=== PATIENT | female | born 1955 | race Caucasian/White ===

== ENCOUNTER 2020-07-23 14:37 | Outpatient (REF) | payer OTHER, SELFPAY ==
[2020-07-23 16:00] LABS: SARS COV2 PCR INHOUSE NEGATIVE (Negative)
== END 2020-07-23 14:38 | disposition home or self-care (01) ==
LOC: HO.LAB 14:37
PROVIDERS: Visit Provider Internal Medicine
DX: Z20.822 Contact with and (suspected) exposure to COVID-19 (principal)
CPT/HCPCS: C9803; U0003

== ENCOUNTER 2020-08-11 11:46 | Day surgery (SDC) | payer OTHER, SELFPAY ==
[2020-08-11 11:56] VITALS: BMI 21.0
[2020-08-11 12:10] VITALS: BP 117/73; PULSE 71; RESP 16; TEMP 36.6; O2SAT 98
[2020-08-11] MEDS: Lactated Ringers 1,000 ML 20 ML IVCONT (12:10)
--- NOTE | 2020-08-11 13:00 | P.CONAN_ITS ---
[facility] Past Medical History Medical History Elevated cholesterol Family History Family history of problems with anesthesia: No Surgical History Surgical History S/P epidural steroid injection History of Problems with Anesthesia: No Social History Social History Smoking Status: Former smoker Smoked in Last 30 Days: No Use of substances other than those prescribed or required for medical reasons: No Advance Directives: No Advance Directives Information Provided: Yes Meds Allergies Allergy/AdvReac Type Severity Reaction Status Date / Time tramadol Allergy Unknown Unknown Verified 08/04/20 14:40 Exam Exam Date and Time: August 11, 2020 1300 Height,Weight and Vital Signs: Height 5 ft 7 in Weight 61 kg Last Vital Signs Temp 97.9 F 08/11/20 12:10 Pulse 71 08/11/20 12:10 Resp 16 08/11/20 12:10 BP 117/73 08/11/20 12:10 Pulse Ox 98 08/11/20 12:10 Airway Mallampati Class: I TM Dist: >3cm Neck ROM: Full Loose/Missing/Broken Teeth: No Heart: ok Lungs: ok Assessment and Plan Assessment Anesthesia Assessment: Anesthesia Plan Discussed and Chart Reviewed Final Anesthetic Review NPO: Yes ASA Class: I Final Preanesthetic Review: No Changes in Pt Med Stat, Meds/Allgs Chart Reviewed, Consent Obtained/Reviewed and Anes Risks/Benef Reviewed Patient Risk: Low Procedure Risk: Intermediate Anesthetic Plan Anesthetic Plan: MAC: and Agree w/ Assess. and Plan Disposition: Standard PACU
--- NOTE | 2020-08-11 13:01 | MHC.SHP ---
Pre-Procedural Eval Section A The patient is an INPATIENT: No Changes since office visit: No Cold of Flu in the past 2 weeks, No New Medical Problems, No Changes in Medication and No Patient answered all questions The History & Physical has been completed within 30 days and I have reviewed it.: Yes Section B Chief Complaint: GERD, Diarrhea Allergies: Allergies Allergy/AdvReac Type Severity Reaction Status Date / Time tramadol Allergy Unknown Unknown Verified 08/04/20 14:40 Plan I have reviewed the history and physical and performed a pertinent physical examination on my patient. No changes have occurred unless specified.
[2020-08-11 13:56] VITALS: BP 102/61; PULSE 55; RESP 18; TEMP 36.6; O2SAT 97
--- NOTE | 2020-08-11 14:05 | PM.OP ---
Brief Operative Note Date of Service: 08/11/20 Pre-op diagnosis: epigastric pain, diarrhea Post-op diagnosis: same (gastric polyp, colon polyps) Procedure: egd/colon Surgeon: Mani Morales Anesthesia: MAC Estimated blood loss (mL): 5 Pathology: other (bxs, colonpolyps, gastric polyp) Condition: stable Disposition: PACU
[2020-08-11 14:11] VITALS: BP 114/58; PULSE 59; RESP 16; TEMP 36.6; O2SAT 99
--- NOTE | 2020-08-11 15:10 | OP_ITS ---
SURGEON: Mani Morales MD INDICATIONS: Epigastric pain and diarrhea. PREOPERATIVE DIAGNOSIS: POSTOPERATIVE DIAGNOSIS: PROCEDURE PERFORMED: Upper endoscopy with biopsy, colonoscopy to the terminal ileum with biopsy, and snare polypectomy. ESTIMATED BLOOD LOSS: COMPLICATIONS: ANESTHESIA: Monitored anesthesia care. ASSISTANTS: SPECIMENS: DESCRIPTION OF PROCEDURE: History and physical performed. The risks and benefits of the procedure were explained to the patient and informed consent was obtained. The patient was placed in the left lateral decubitus position. The Olympus video gastroscope was introduced into the esophagus, stomach, and duodenum. Examination was performed. The scope was removed. She was repositioned for colonoscopy. Digital rectal exam was performed and it was found to be normal. The Olympus pediatric video colonoscope was introduced into the rectum and advanced to the cecum without difficulty. The cecum was identified by transillumination, palpation, and identification of ileocecal valve. Examination was performed. The scope was removed. She tolerated both procedures well and was transferred to the recovery area in stable condition. FINDINGS: UPPER ENDOSCOPY: Esophagus: The esophagus was normal. There was no esophagitis. Biopsies were obtained from the EG junction. Stomach: Stomach showed a benign-appearing gastric polyp measuring less than 5 mm in the body of the greater curvature and this was biopsied. Biopsies were obtained from the antrum, which appeared normal. Duodenum: The bulb and second portion were normal. Biopsies were obtained to rule out malabsorption from the second portion. COLONOSCOPY: The terminal ileum was normal. The visualized colonic mucosa was normal. The quality of the prep was good. Three polyps, all measuring less than 10 mm, were identified and removed with a snare. These were located at 60, 50, and 40 cm, all recovered via suction. No diverticulosis was identified. There was no evidence of colitis. Random biopsies were obtained to rule out microscopic or collagenous colitis. Retroflexed examination showed small internal hemorrhoids. IMPRESSION: Colon polyps and gastric polyp. RECOMMENDATIONS: Follow up the biopsy results. MD SARA Urbano/CORNELL / [id number]
== END 2020-08-11 14:55 | disposition home or self-care (01) ==
PROVIDERS: PCP Internal Medicine; Visit Provider Internal Medicine Gastroenterology
PROC: (CPT 45385; principal; 2020-08-11 13:00)
DX: R19.7 Diarrhea, unspecified (principal); Z86.010 Personal history of colon polyps; D12.4 Benign neoplasm of descending colon; D12.5 Benign neoplasm of sigmoid colon; K64.8 Other hemorrhoids; R10.13 Epigastric pain; K31.7 Polyp of stomach and duodenum; Z87.19 Personal history of other diseases of the digestive system; Z90.49 Acquired absence of other specified parts of digestive tract; Z79.899 Other long term (current) drug therapy; Z88.8 Allergy status to other drugs, medicaments and biological substances; Z87.891 Personal history of nicotine dependence
CPT/HCPCS: 45385; 45380; 43239; 88300; 88305; 88342; J2250; J3010

== ENCOUNTER 2020-09-16 18:54 | Outpatient (REF) | payer OTHER, SELFPAY ==
--- NOTE | ~2020-09-16 | MR_ITS ---
MR CERVICAL SPINE WITHOUT IV CONTRAST CLINICAL INFORMATION: Severe neck and right arm pain/numbness as well as left arm paresthesias. COMPARISON: None available. TECHNIQUE: MRI of the cervical spine was obtained using routine sequences without contrast. FINDINGS: There is anterior subluxation of C3 on C4 and there is retrosubluxation of C5 on C6. Modic type I endplate signal changes at C5-C6. No prevertebral soft tissue swelling to suggest infection. There is no additional bone marrow edema. No acute fractures are identified. There is severe disc volume loss at C5-C6. Mild disc volume loss at C3-C4. Cervical arterial flow voids are maintained. No significant extraspinal soft tissue findings. No cord signal abnormality. Partially imaged intracranial compartment unremarkable. C2-C3: Disc contour normal. Right facet arthropathy. No central canal stenosis and no foraminal stenosis. C3-C4: Anterior subluxation. Disc osteophyte and ligamentum flavum thickening result in mild to moderate central canal stenosis. Advanced uncovertebral joint hypertrophy and hypertrophic facet arthropathy result in severe right and moderate left foraminal stenosis. C4-C5: Disc osteophyte mildly narrows the central canal. Advanced uncovertebral joint hypertrophy and hypertrophic facet arthropathy result in severe left foraminal stenosis. C5-C6: Disc osteophyte and ligamentum flavum thickening result in moderate central canal stenosis and flattening of the cord. Advanced uncovertebral joint hypertrophy and hypertrophic facet arthropathy result in severe right and mild to moderate left foraminal stenosis. C6-C7: Posterior disc contour is normal. No central canal stenosis and no foraminal stenosis. C7-T1: Posterior disc contour is normal. No central canal stenosis and no foraminal stenosis. MR/MR cervical spine wo con IMPRESSION: Advanced multilevel cervical spondylosis. There is anterior subluxation of C3 on C4 in the setting of advanced facet arthropathy and there is retrosubluxation of C5 on C6 in the setting of advanced facet arthropathy. Retrosubluxation and multifactorial degenerative changes result in moderate central canal stenosis and flattening of the cervical cord at C5-C6. Advanced spondylitic changes result in severe right and moderate left C3-C4, severe left C4-C5, and severe right C5-C6 foraminal stenosis. Probable Modic type I endplate signal changes at C5-C6. Early osteomyelitis discitis should be considered in the appropriate clinical context though is considered unlikely given the lack of paravertebral soft tissue swelling.
== END 2020-09-16 18:55 | disposition home or self-care (01) ==
LOC: HO.MRI 18:54
PROVIDERS: Visit Provider Neuromusculoskeletal Medicine, Sports Medicine
DX: M54.2 Cervicalgia (principal); R20.0 Anesthesia of skin; R20.2 Paresthesia of skin
CPT/HCPCS: 72141

== ENCOUNTER 2020-10-06 12:03 | Outpatient (REF) | payer OTHER, SELFPAY ==
--- NOTE | ~2020-10-06 | MM_ITS ---
EXAMINATION: MM SCREENING DIGITAL BREAST TOMOSYNTHESIS, BILATERAL CLINICAL INFORMATION: Screening. Asymptomatic. Basal cell carcinoma excised from skin right breast 2018. The lifetime risk of breast cancer based on the Tyrer-Cuzick Model is 9%. COMPARISON: Mammography: 07/08/2019, 06/14/2018, outside exams 05/30/2017 and 06/04/2014 ([place] TECHNIQUE: Digital breast tomosynthesis is performed in both the craniocaudal and mediolateral oblique views along with computer-aided detection (CAD). Synthesized 2D images are generated from the tomosynthesis. FINDINGS: There are scattered areas of fibroglandular density (ACR BI-RADS breast composition Category b). There are no significant masses, abnormal calcifications, or other abnormalities. Parenchymal pattern is similar to prior studies. The axilla and skin contours are unremarkable. No significant changes. MM/MM tomosynthesis screening BI IMPRESSION: No mammographic evidence of malignancy. ASSESSMENT: BI-RADS 1: Negative RECOMMENDATION: Routine annual mammography screening. This patient's information was entered into a reminder system with a target due date for their next mammogram.
== END 2020-10-06 12:04 | disposition home or self-care (01) ==
LOC: HO.MAMMO 12:03
PROVIDERS: Visit Provider Internal Medicine
DX: Z12.31 Encounter for screening mammogram for malignant neoplasm of breast (principal)
CPT/HCPCS: 77063; 77067

== ENCOUNTER 2020-10-14 07:49 | Outpatient (REF) | payer OTHER, SELFPAY ==
[2020-10-14 08:37] LABS: Hematocrit 42.6 % (37-47); Hemoglobin 13.7 g/dl (12.0-16.0); Mean Corpuscular HGB Conc 32.2 g/dl (31.0-35.0); Mean Corpuscular Hemoglobin 29.3 pg (27.0-33.0); Mean Platelet Volume 10.9 fL (9.4-12.3); Platelet Count 322 X10*3/uL (160-400); Red Blood Count 4.68 X10*6/uL (4.20-5.50); Red Cell Distribution Width 13.6 % (11.0-16.0); White Blood Count 6.1 X10*3/uL (4.8-10.8)
[2020-10-14 08:48] LABS: Alanine Aminotransferase 15 U/L (0-31); Albumin Level 4.6 g/dL (3.5-5.0); Alkaline Phosphatase 76 U/L (39-117); Anion Gap 10 (12-20); Aspartate Amino Transferase 18 U/L (5-31); Bilirubin Direct 0.2 mg/dL (0.0-0.5); Bilirubin Total 0.6 mg/dL (0.0-1.0); Blood Urea Nitrogen 17 mg/dL (9-16); Carbon Dioxide 31 mmol/L (22-29); Chloride 102 mmol/L (96-108); Cholesterol 188 mg/dL; Estimated Glomerular Filt Rate > 60; Glucose Random 99 mg/dL (60-115); HDL Cholesterol 69 mg/dL; LDL Cholesterol Calculated 98 mg/dl; Potassium 4.7 mmol/L (3.3-5.1); Sodium 138 mmol/L (135-145); Total Protein 7.2 g/dL (6.5-8.0); Triglycerides 108 mg/dL
[2020-10-14 09:13] LABS: Thyroid Stimulating Hormone 1.29 uIU/mL (0.32-4.0)
[2020-10-14 09:20] LABS: Glucose Urine UA NEG (NEG); Leukocyte Esterase Urine 1+ (NEG); Nitrite Urine NEG (NEG); Urine Blood NEG (NEG); Urine Ketones NEG (NEG); Urine Protein NEG (NEG-TRACE)
[2020-10-14 09:21] LABS: Appearance Urine CLEAR; Color Urine STRAW
[2020-10-14 09:30] LABS: RBC Urine 0 /HPF (0)
== END 2020-10-14 07:50 | disposition home or self-care (01) ==
LOC: HO.LAB 07:49
PROVIDERS: PCP Internal Medicine; Visit Provider Internal Medicine
DX: M54.2 Cervicalgia (principal)
CPT/HCPCS: 36415; 80048; 80061; 80076; 81001; 84443; 85027

== ENCOUNTER 2020-11-03 10:00 | Outpatient (RCR) | payer OTHER, SELFPAY ==
--- NOTE | 2020-12-01 10:34 | MHC.PT.DC ---
[facility] [place] Office [place] Office [place] Office [address] [place] [address] [phone] F: [phone] F: [phone] F: [phone] F: [phone] Physical Therapy Discharge Report Diagnosis: CERVICALGIA Date of Surgery: NA Date of Evaluation: 10/29/20 Date of Discharge: 12/01/20 Treatments to Date: 2 Cancellations to Date: 0 No Shows to Date: 0 Discharge Status: Patient Elected to Stop Discharge Summary: CHASE ATTENDED EVAL AND ONE VISIT. ASSESSMENT AT THAT TIME WAS Pt PRESENTS WITH SIGNIFICANT FINDINGS FROM REPORT ON MRI AND THEREFORE ADDITIONAL COMPRESSION/SPECIAL TESTING NOT PERFORMED. UPON EXAM SHE DEMONSTRATES DECREASED CERVICAL ROM, INCREASED COMPENSATION IN CERVICAL MUSCULATURE AND UPPER TRAP WITH RESPIRATIONS AND SHOULDER ACTIVITY, DECREASED UPPER EXTREMITY STRENGTH, ALTERED POSTURE AND SHE DEMONSTRATEWS MUSCULAR LENGTH AND STRENGTH IMBALANCES FOSTERING PATTERNED MOVEMENT STYLES LEADING TO COMPENSATION AND PAIN. FUNCTIONAL LIMITATIONS INCLUDE DECREASED ABILITY TO PERFORM HOMEMMAKING AND SELF CARE TASKS, DECREASED ABILITY TO PERFORM LIFTING AND HIGHER DEMAND WORK TASKS, DECREASEWD PARTICIPATION IN FITNESS ACTIVITIES AND DECREASED PARTICIPATION IN RECREATIONAL ACTIVITIES, SHE REPORTS DISRUPTED SLEEP. SHE DID NOT RETURN FOR ANY ADDITIONAL VISITS IN THE LAST 30 DAYS AND IS DCed AT THIS TIME. Electronically signed by: Wendi Grider PT, DPT Please sign and return to therapist. Thank you for your referral.
== END 2020-12-01 10:35 | disposition home or self-care (01) ==
LOC: HO.PT 10:00
PROVIDERS: PCP Internal Medicine; Visit Provider Internal Medicine
DX: M54.2 Cervicalgia (principal)
CPT/HCPCS: 97110; 97140; 97162

== ENCOUNTER 2021-01-05 08:45 | Outpatient (REF) | payer OTHER, SELFPAY | END 2021-01-05 08:46 | disposition home or self-care (01) | LOC: HO.LAB 08:45 | PROVIDERS: Visit Provider Anesthesiology | DX: Z20.822 Contact with and (suspected) exposure to COVID-19 (principal) | CPT/HCPCS: C9803; U0003; U0005 ==

== ENCOUNTER 2021-05-26 07:49 | Outpatient (REF) | payer OTHER, SELFPAY ==
[2021-05-26 11:12] LABS: Influenza A PCR NEGATIVE (Negative); Influenza B PCR NEGATIVE (Negative); Resp Syncy Virus RNA Qual PCR NEGATIVE (Negative); SARS COV2 PCR INHOUSE NEGATIVE (Negative)
== END 2021-05-26 07:50 | disposition home or self-care (01) ==
LOC: HO.LAB 07:49
PROVIDERS: Visit Provider Internal Medicine
DX: Z20.822 Contact with and (suspected) exposure to COVID-19 (principal)
CPT/HCPCS: 0241U; C9803

== ENCOUNTER 2021-08-15 14:25 | Outpatient (REF) | payer OTHER, SELFPAY ==
--- NOTE | ~2021-08-15 | MR_ITS ---
EXAMINATION: MR LUMBAR SPINE WITHOUT CONTRAST CLINICAL INFORMATION: 66-year-old with unspecified dorsalgia. Complaints of low back and bilateral leg pain, mostly on the right. COMPARISON: 10/24/2019 MRI. TECHNIQUE: MRI of the lumbar spine was obtained using routine sequences without contrast. FINDINGS: CORONAL ALIGNMENT: Slight upper lumbar dextrocurvature and partially imaged lower thoracic levocurvature unchanged. SAGITTAL ALIGNMENT: Mild grade 1 degenerative spondylolisthesis at L3-L4 again noted, stable in appearance. Lumbar lordotic curvature is maintained. Trace retrolisthesis at L1-L2 is stable. LUMBOSACRAL JUNCTION: Normal. 5 nonrib-bearing lumbar-type vertebra. VERTEBRAL BODIES: Vertebral body heights are well maintained. DISC SPACES AND ENDPLATES: Mild disc space height loss and disc desiccation at L3-L4 stable in appearance and jimx-ue-rbnhxgrs disc space height loss with disc desiccation at L1-L2 stable in appearance with mild multilevel spondylosis between L1-L2 and L4-L5 inclusive. Disc desiccation and mild disc space height loss at L2-L3 with disc desiccation at L4-L5. SPINAL CANAL: No abnormal developmental findings. BONE MARROW: No significant marrow-replacing process or aggressive bone marrow edema. There is minor marrow edema in the right L4 pedicle adjacent to the facet joint, likely reactive. CONUS MEDULLARIS: Terminates at L1. Morphology and signal is normal. INTRADURAL NERVE ROOTS: Crowding of the intradural nerve roots at L3-L4 consistent with spinal stenosis similar to previous exam. Otherwise within normal limits. L5-S1: No significant disc bulge. Moderate right-sided and mild left-sided facet arthropathy stable in appearance with no significant canal or neural foraminal stenosis unchanged in appearance. Tiny right lateral disc protrusion at this level stable in appearance without neural impingement. L4-L5: Mild disc bulging is noted with a tiny right lateral annular fissure stable in appearance. There is mild flattening of the ventral dural sac unchanged in appearance and there is ligamentum flavum thickening with moderate bilateral facet hypertrophic degenerative change largely unchanged. There is mild trefoil spinal canal narrowing stable in appearance. There is mild left-sided and owof-iy-igsybwia right-sided neural foraminal stenosis without definite neural impingement stable in appearance. L3-L4: Diffuse disc bulging, unroofing of the posterior disc margin and right lateral annular fissuring stable in appearance. Flattening of the dural sac again noted. Superimposed left subarticular to foraminal disc herniation slightly more apparent on current study. Ligamentum flavum thickening and marked bilateral facet arthropathy similar to the previous study, with severe central spinal canal stenosis and crowding of the intradural nerve roots largely unchanged. There is bilateral subarticular recess stenosis, left more than right, stable in appearance. Moderate right-sided and zbpvkiws-dv-jdjttw left-sided neural foraminal stenosis stable in appearance, with encroachment on the exiting L3 nerve roots bilaterally largely unchanged. L2-L3: Diffuse disc bulging again noted with a superimposed right subarticular to foraminal disc herniation again noted, with flattening of the dural sac asymmetric to the right and mild narrowing of the right subarticular zone stable in appearance. Minor facet arthropathy is noted with mild ligamentum flavum thickening with no significant central spinal canal stenosis. There is lmgs-ys-uqooqftj right foraminal narrowing with disc herniation abutting the exiting right L2 nerve root unchanged. Concentric annular fissuring on the right appears progressed from previous study. L1-L2: Minor annular bulging with slight retrolisthesis is stable with superimposed right-sided extraforaminal/foraminal disc herniation stable in appearance slightly encroaching on the extraforaminal right L1 nerve root again noted with no significant central canal stenosis. Mild right-sided foraminal narrowing is stable. PARASPINAL/RETROPERITONEAL: The paravertebral soft tissues are unremarkable. MR/MR lumbar spine wo con IMPRESSION: 1. Stable grade 1 spondylolisthesis at L3-L4 with multilevel discogenic degenerative changes and spondylosis largely unchanged in appearance. 2. Multilevel disc bulging again noted largely unchanged, with right lateral disc herniations at L1-L2 and L2-L3 stable in appearance and left subarticular to foraminal disc herniation at L3-L4 slightly more prominent on current study. 3. Severe spinal canal stenosis at L3-L4 is largely unchanged. Multilevel bilateral facet arthropathy and ligamentum flavum thickening is largely stable in appearance. 4. Multilevel bilateral mild, mihj-ak-ocxmaunu and moderate degrees of neural foraminal stenosis, unchanged and elgzyvdw-ur-qfuhtj neural foraminal stenosis at L3-L4 on the left unchanged.
[2021-08-15 16:04] LABS: C Reactive Protein 0.07 mg/dL (< or = 0.50); Rheumatoid Factor < 15.0 IU/mL (<15.0)
[2021-08-17 14:26] LABS: Anti Nuclear Antibody Screen NEGATIVE (NEGATIVE)
== END 2021-08-15 14:26 | disposition home or self-care (01) ==
LOC: HO.MRI 14:25
PROVIDERS: Visit Provider Nurse Practitioner Family
DX: M54.9 Dorsalgia, unspecified (principal); M25.50 Pain in unspecified joint
CPT/HCPCS: 36415; 72148; 86038; 86039; 86140; 86431

== ENCOUNTER 2021-10-28 10:58 | Outpatient (REF) | payer OTHER, SELFPAY ==
[2021-10-28 11:26] LABS: Hematocrit 38.4 % (37.0-47.0); Hemoglobin 12.6 g/dl (12.0-16.0); Mean Corpuscular HGB Conc 32.8 g/dl (31.0-35.0); Mean Corpuscular Hemoglobin 30.2 pg (27.0-33.0); Mean Corpuscular Volume 92.1 fL (80.0-98.0); Mean Platelet Volume 10.4 fL (9.4-12.3); Platelet Count 281 X10*3/uL (160-400); Red Blood Count 4.17 X10*6/uL (4.20-5.50); White Blood Count 5.6 X10*3/uL (4.8-10.8)
[2021-10-28 12:42] LABS: Alanine Aminotransferase 21 U/L (0-31); Albumin Level 4.4 g/dL (3.5-5.0); Alkaline Phosphatase 68 U/L (39-117); Anion Gap 12 (12-20); Aspartate Amino Transferase 21 U/L (5-31); Bilirubin Direct 0.3 mg/dL (0.0-0.5); Bilirubin Total 0.4 mg/dL (0.0-1.0); Blood Urea Nitrogen 16 mg/dL (9-16); Calcium 9.5 mg/dL (8.4-10.2); Carbon Dioxide 29 mmol/L (22-29); Chloride 102 mmol/L (96-108); Cholesterol 163 mg/dL; Estimated Glomerular Filt Rate > 60; Glucose Fasting 94 mg/dL (60-99); HDL Cholesterol 67 mg/dL; LDL Cholesterol Calculated 78 mg/dl; Potassium 4.5 mmol/L (3.3-5.1); Sodium 138 mmol/L (135-145); Triglycerides 92 mg/dL
[2021-10-28 13:02] LABS: TSH reflex Free T4 1.22 uIU/mL (0.32-4.0)
== END 2021-10-28 10:59 | disposition home or self-care (01) ==
LOC: HO.LAB 10:58
PROVIDERS: PCP Internal Medicine; Visit Provider Internal Medicine
DX: Z00.00 Encounter for general adult medical examination without abnormal findings (principal)
CPT/HCPCS: 36415; 80053; 80061; 80076; 82248; 84443; 85027

== ENCOUNTER 2021-11-02 15:40 | Outpatient (REF) | payer OTHER, SELFPAY ==
--- NOTE | ~2021-11-02 | MM_ITS ---
EXAMINATION: MM SCREENING DIGITAL BREAST TOMOSYNTHESIS, BILATERAL CLINICAL INFORMATION: Screening. Asymptomatic. The lifetime risk of breast cancer based on the Tyrer-Cuzick Model is 4%. COMPARISON: Mammography: 10/06/2020, 07/08/2019, 06/14/2018 TECHNIQUE: Digital breast tomosynthesis is performed in both the craniocaudal and mediolateral oblique views along with computer-aided detection (CAD). Synthesized 2D images are generated from the tomosynthesis. FINDINGS: There are scattered areas of fibroglandular density (ACR BI-RADS breast composition Category b). There are no significant masses, abnormal calcifications, or other abnormalities. Parenchymal pattern is similar to prior studies. There is no developing density or architectural abnormality. The axilla and skin contours are unremarkable. No significant changes. MM/MM tomosynthesis screening BI IMPRESSION: No mammographic evidence of malignancy. ASSESSMENT: BI-RADS 1: Negative RECOMMENDATION: Routine annual mammography screening. This patient's information was entered into a reminder system with a target due date for their next mammogram.
== END 2021-11-02 15:41 | disposition home or self-care (01) ==
LOC: HO.MAMMO 15:40
PROVIDERS: PCP Internal Medicine; Visit Provider Internal Medicine
DX: Z12.31 Encounter for screening mammogram for malignant neoplasm of breast (principal)
CPT/HCPCS: 77063; 77067

== ENCOUNTER → 2021-12-20 10:35 | Outpatient (REF) | payer OTHER, SELFPAY ==
--- NOTE | 2021-12-20 10:13 | CA_ITS ---
Transthoracic Echocardiogram Patient (Last, First, Middle): Agata Hampton, Gender: Female Date of : 1955 Age: 66 Procedure Date: 12/20/2021 Procedure Type: Transthoracic Echocardiogram Location: OP Height: 170. cm Weight: 63. kg BSA: 1.73 m2 Heart Rate: bpm BP: 110 / 68 mmHg Motorcycle Tester: BRITANY Referring MD: Benny Connell MD Awning Erector: Benny Connell MD Symptoms: I49.3 - Ventricular premature depolarization Study Quality: Adequate ECG Rhythm: Sinus Conclusions: - 1. Normal LV systolic function with grade 1 diastolic dysfunction 2. Normal cardiac valvular Doppler is 3. Trivial pericardial effusion Findings Left Ventricle Normal left ventricular size, thickness, and systolic function. The visually estimated ejection fraction is between 60-65%. Spectral Doppler is indicative of an impaired relaxation filling pattern. E/E prime ratio is <8, consistent with normal filling pressures. Evidence suggests grade I (mild) diastolic dysfunction. Right Ventricle Normal right ventricular cavity size and systolic function. Atria The left atrium is normal in size. Interatrial shunt cannot be excluded. The right atrium is normal in size. Aortic Valve There is mild calcification of the aortic valve. There is no aortic valve stenosis. There is no aortic valve regurgitation. Mitral Valve Normal mitral valve structure and function. There is trace mitral valve regurgitation. There is no mitral valve stenosis. Pulmonic Valve The pulmonic valve was not well visualized. Tricuspid Valve Likely normal tricuspid valve structure and function. Tricuspid regurgitation envelope is inadequate for calculation of right ventricular systolic pressure. Normal right atrial pressure. Great Vessels All visible segments of the aorta are normal in size. The pulmonary artery was not well visualized. Venous The inferior vena cava is mildly dilated and collapses greater than 50% with inspiration. Pericardium/Pleural There is a trivial pericardial effusion. Prior Study Comparison No prior study available for comparison. Measurements 2D Linear Measurements IVSd: 0.92 0.6-0.9/0.6-1.0 cm LVIDd: 4.74 3.9-5.3/4.2-5.9 cm LVIDd Index: 2.74 2.4-3.2/2.2-3.1 cm/m2 LVIDs: 3.50 2.0-3.6 cm LVPWd: 0.86 0.7-1.1 cm LA Diam: 3.30 2.7-3.8/3.0-4.0 cm LAIDs Index: 1.91 1.5-2.3 cm/m2 LV Mass: 176.97 67-162/88-224 g LV Mass Index: 102.29 43-95/49-115 g/m2 LVOT Diam: 1.70 3.0+(-)1.3 cm 2D Systolic Function EF 4C: 59.70 >55% EF 2C: 67.60 >55% EF BiP: 63.80 >55% Mitral Valve MV Pk E: 0.68 MV PK A: 0.84 MV Decel Time: 283.00 E/A: 0.80 E'Lateral: 9.03 E'Medial: 4.79 E/E' Med: 14.20 E/E' Lat: 7.50 PHT: 83.00 MVA PHT: 2.65 Decel Treasure: 2.41 Aortic Valve AoV Pk Vazquez: 1.55 AoV Mn Vazquez: 1.10 AoV VTI: 0.33 AoV Pk Grad: 10.00 Aov Mn Grad: 5.00 APRIL Cont.VTI: 1.68 LVOT LVOT Pk Vazquez: 1.14 LVOT Mn Vazquez: 0.78 LVOT VTI: 0.24 LVOT Pk Grad: 5.00 LVOT Mn Grad: 3.00 LVOT Diam: 1.70 LVOT Area: 2.27 Diastolic Function MV Pk E: 0.68 MV Pk A: 0.84 E/A: 0.80 E'Medial: 4.79 E/E' Med: 14.20 E' Laterial: 9.03 E/E' Lat: 7.50 Right Ventricle TAPSE (mm): 32.00 TVS' Vazquez: 12.20 Tricuspid Valve RA Press: 3.00 Great Vessels Aorta Sinus of Valsalva: 2.88 2.0-3.[address] Ridge: 2.54 1.7-3.4 cm Ao Asc: 3.00 2.1-3.4 cm Updated in Other Vendor System with Status of Final Benny Connell MD electronically signed on 12/21/2021 4:35:58 PM with status of Final
--- NOTE | 2021-12-20 10:13 | HM_ITS ---
* Total monitoring time 6 days and 22 hours. * Average rate of 67/Min. Range 44 to 116/Min. * Frequent ventricular ectopy. 1 morphology. Some couplets. One run of 3 beats. Overall burden 3.6%. * Occasional supraventricular ectopy. Minimal burden. * Palpitations in patient diary correlates with PVCs. MTDD
== END ==
LOC: HO.CARD 10:35
PROVIDERS: PCP Internal Medicine; Visit Provider Internal Medicine Cardiovascular Disease
DX: I49.3 Ventricular premature depolarization (principal); R42 Dizziness and giddiness
CPT/HCPCS: 93242; 93306

== ENCOUNTER → 2022-01-17 10:11 | Outpatient (BNVA) | payer OTHER, SELFPAY | PROVIDERS: PCP Internal Medicine; Visit Provider Internal Medicine Cardiovascular Disease | DX: R07.89 Other chest pain (principal); I49.3 Ventricular premature depolarization | CPT/HCPCS: 93005 ==

== ENCOUNTER → 2022-02-21 11:05 | Outpatient (REF) | payer OTHER, SELFPAY ==
--- NOTE | 2022-02-21 11:12 | CA_ITS ---
Acquisition Time: 2022-02-21 11:12:47 Total Exercise Time: 00:08:26 Test Indications: Chest Pain Medications: CELEBREX OMEPRAZOLE ROSUVASTATIN Protocol: NISH Max HR: 148 BPM 97% of Pred: 152 BPM Max BP: 128/078 mmHG Max Work Load: 10.1 METS Exercise strerss test with exercise 8 min 26 sec of nish protocol, achieving 96% MPHR, without anginal symptoms, with isolated PVCs and PACs, mostly at rest and in recovery, with blunted BP response to exercise ( according to BPs remported by MA), baseline BP 118/66 and max BP 128/78, with significant artifact noted during exercise, with borderline ST changes seen on some tracings. Echo images obtained by tech at rest and immediately post peak exercise. Definity contrast used. Test reviewed with Dr Oleary Referred By: Benny Connell Overread By: SAAD SY
== END ==
LOC: HO.CARD 11:05
PROVIDERS: Visit Provider Internal Medicine Cardiovascular Disease
DX: R07.89 Other chest pain (principal)
CPT/HCPCS: 93350; Q9957

== ENCOUNTER 2022-07-14 15:03 | Outpatient (REF) | payer OTHER, SELFPAY ==
[2022-07-14 16:45] LABS: Alanine Aminotransferase 20 U/L (0-31); Aspartate Amino Transferase 21 U/L (5-31)
[2022-07-17 04:08] LABS: HIV AB/AG Nonreactive (Nonreactive); HIV Num 1 0.06 S/CO (0.00-0.99); ~Hepatitis C Antibody Nonreactive (Nonreactive)
== END 2022-07-14 15:04 | disposition home or self-care (01) ==
LOC: WCCF 15:03
PROVIDERS: PCP Internal Medicine; Visit Provider Internal Medicine
DX: Z77.21 Contact with and (suspected) exposure to potentially hazardous body fluids (principal); Z11.4 Encounter for screening for human immunodeficiency virus [HIV]
CPT/HCPCS: 36415; 84450; 84460; 86803; 87389; 99203

== ENCOUNTER 2022-09-12 14:44 | Outpatient (REF) | payer OTHER, SELFPAY ==
--- NOTE | ~2022-09-12 | XR_ITS ---
EXAMINATION: XR CHEST CLINICAL INFORMATION: Cough COMPARISON: None available. TECHNIQUE: 2 views of the chest were obtained. FINDINGS: The cardiac and mediastinal contours are normal. The lungs are clear. No pleural effusion or pneumothorax. Degenerative changes of the thoracic spine and mild scoliosis. XR/XR chest 2V IMPRESSION: No evidence for acute disease in the chest.
[2022-09-12 15:12] LABS: Hematocrit 40.7 % (37.0-47.0); Hemoglobin 13.2 g/dl (12.0-16.0); Mean Corpuscular HGB Conc 32.4 g/dl (31.0-35.0); Mean Corpuscular Hemoglobin 29.8 pg (27.0-33.0); Mean Corpuscular Volume 91.9 fL (80.0-98.0); Mean Platelet Volume 10.8 fL (9.4-12.3); Platelet Count 376 X10*3/uL (160-400); Red Blood Count 4.43 X10*6/uL (4.20-5.50); Red Cell Distribution Width 13.6 % (11.0-16.0); White Blood Count 8.5 X10*3/uL (4.8-10.8)
[2022-09-12 19:09] LABS: Erythrocyte Sedimentation Rate 5 MM/HR (0-20)
[2022-09-13 00:55] LABS: Alanine Aminotransferase 20 U/L (0-31); Albumin Level 4.4 g/dL (3.5-5.0); Alkaline Phosphatase 72 U/L (39-117); Anion Gap 13 (12-20); Aspartate Amino Transferase 20 U/L (5-31); Bilirubin Direct 0.1 mg/dL (0.0-0.5); Bilirubin Total 0.4 mg/dL (0.0-1.0); Blood Urea Nitrogen 17 mg/dL (9-16); Calcium 9.8 mg/dL (8.4-10.2); Carbon Dioxide 28 mmol/L (22-29); Chloride 105 mmol/L (96-108); Estimated Glomerular Filt Rate 53; Glucose Random 133 mg/dL (60-115); Potassium 4.7 mmol/L (3.3-5.1); Sodium 141 mmol/L (135-145); Total Protein 7.3 g/dL (6.5-8.0)
== END 2022-09-12 14:45 | disposition home or self-care (01) ==
LOC: HO.LAB 14:44
PROVIDERS: PCP Internal Medicine; Visit Provider Internal Medicine
DX: R05.9 Cough, unspecified (principal)
CPT/HCPCS: 36415; 71046; 80048; 80076; 85027; 85652

== ENCOUNTER → 2022-09-14 07:18 | Outpatient (BNVA) | payer OTHER, SELFPAY | PROVIDERS: PCP Internal Medicine | DX: Z13.89 Encounter for screening for other disorder (principal) | CPT/HCPCS: 36415; 84450; 84460; 87389; 99211 ==

== ENCOUNTER 2023-01-31 14:26 | Outpatient (REF) | payer OTHER, SELFPAY ==
--- NOTE | ~2023-01-31 | XR_ITS ---
EXAMINATION: CERVICAL SPINE 3 VIEWS CLINICAL INFORMATION: Cervical spondylolisthesis. COMPARISON: Portions of the MRI cervical spine dated 09/16/2020. TECHNIQUE: Frontal and lateral (neutral, flexion and extension) views of the cervical spine are obtained. FINDINGS: Vertebral body heights are normal. There is a mild cervicothoracic levoscoliosis, which may be positional. At C2-C3, there is a 2 mm anterolisthesis. At C3-C4, there is a 3 mm anterolisthesis upon extension, which increases to 5 mm with flexion. At C4-C5, there is a 2 mm anterolisthesis. At C5-C6, there is a 4 mm retrolisthesis and marked disc space narrowing, with spondylosis. The remaining disc spaces are well-maintained. No acute fracture or spondylolisthesis is seen. The posterior elements are intact. There is no prevertebral soft tissue swelling. The dens and C7-T1 interface are normal. XR/XR lumbar spine 4V min IMPRESSION: 1. There is multi-level cervical degenerative disc disease and spondylosis. Degenerative disc disease is most pronounced at C5-C6, where it is marked. 2. At C3-C4, there is a 3 mm anterolisthesis upon extension, which increases to 5 mm with flexion. EXAMINATION: XR LUMBOSACRAL SPINE CLINICAL INFORMATION: Lumbar spondylolisthesis. COMPARISON: Radiographs dated 11/28/2019. TECHNIQUE: AP and lateral views of the lumbar spine were obtained. Lateral views were obtained in flexion, extension, and neutral positions. FINDINGS: There is bony demineralization. There is a mild lumbar rotatory levoscoliosis. The lumbar disc spaces are well-maintained. No acute fracture or spondylolisthesis is seen. There is multi-level lumbar spondylosis. No instability is seen with flexion or extension. The posterior elements are intact. There are abdominal surgical clips. IMPRESSION: 1. There is a mild lumbar rotatory levoscoliosis. 2. The lumbar disc spaces are well-maintained. 3. No acute fracture or spondylolisthesis is seen. 4. There is no instability with flexion or extension.
--- NOTE | ~2023-01-31 | XR_ITS ---
EXAMINATION: CERVICAL SPINE 3 VIEWS CLINICAL INFORMATION: Cervical spondylolisthesis. COMPARISON: Portions of the MRI cervical spine dated 09/16/2020. TECHNIQUE: Frontal and lateral (neutral, flexion and extension) views of the cervical spine are obtained. FINDINGS: Vertebral body heights are normal. There is a mild cervicothoracic levoscoliosis, which may be positional. At C2-C3, there is a 2 mm anterolisthesis. At C3-C4, there is a 3 mm anterolisthesis upon extension, which increases to 5 mm with flexion. At C4-C5, there is a 2 mm anterolisthesis. At C5-C6, there is a 4 mm retrolisthesis and marked disc space narrowing, with spondylosis. The remaining disc spaces are well-maintained. No acute fracture or spondylolisthesis is seen. The posterior elements are intact. There is no prevertebral soft tissue swelling. The dens and C7-T1 interface are normal. XR/XR cervical spine 4V IMPRESSION: 1. There is multi-level cervical degenerative disc disease and spondylosis. Degenerative disc disease is most pronounced at C5-C6, where it is marked. 2. At C3-C4, there is a 3 mm anterolisthesis upon extension, which increases to 5 mm with flexion. EXAMINATION: XR LUMBOSACRAL SPINE CLINICAL INFORMATION: Lumbar spondylolisthesis. COMPARISON: Radiographs dated 11/28/2019. TECHNIQUE: AP and lateral views of the lumbar spine were obtained. Lateral views were obtained in flexion, extension, and neutral positions. FINDINGS: There is bony demineralization. There is a mild lumbar rotatory levoscoliosis. The lumbar disc spaces are well-maintained. No acute fracture or spondylolisthesis is seen. There is multi-level lumbar spondylosis. No instability is seen with flexion or extension. The posterior elements are intact. There are abdominal surgical clips. IMPRESSION: 1. There is a mild lumbar rotatory levoscoliosis. 2. The lumbar disc spaces are well-maintained. 3. No acute fracture or spondylolisthesis is seen. 4. There is no instability with flexion or extension.
== END 2023-01-31 14:27 | disposition home or self-care (01) ==
LOC: HO.HOSX 14:26
PROVIDERS: Visit Provider Neurological Surgery
DX: M43.12 Spondylolisthesis, cervical region (principal); M43.16 Spondylolisthesis, lumbar region
CPT/HCPCS: 72050; 72110

== ENCOUNTER 2023-02-27 16:25 | Outpatient (REF) | payer OTHER, SELFPAY ==
--- NOTE | ~2023-02-27 | MM_ITS ---
EXAMINATION: MM SCREENING DIGITAL BREAST TOMOSYNTHESIS, BILATERAL CLINICAL INFORMATION: Screening. Asymptomatic. The patient is status post excision of a fibroadenoma of the right breast. COMPARISON: Mammography: This study is compared with prior exams dating back to 2019. TECHNIQUE: Digital breast tomosynthesis is performed in both the craniocaudal and mediolateral oblique views along with computer-aided detection (CAD). Synthesized 2D images are generated from the tomosynthesis. FINDINGS: There are scattered areas of fibroglandular density (ACR BI-RADS breast composition Category b). There are no significant masses, abnormal calcifications, or other abnormalities. MM/MM tomosynthesis screening BI IMPRESSION: No mammographic evidence of malignancy. ASSESSMENT: BI-RADS BI-RADS 1 - Negative RECOMMENDATION: Routine annual mammography screening. 1 year F/U This examination should not preclude the clinical evaluation of a suspicious palpable abnormality. This patient's information was entered into a reminder system with a target due date for their next mammogram.
== END 2023-02-27 16:26 | disposition home or self-care (01) ==
LOC: HO.MAMMO 16:25
PROVIDERS: Absent Provider Advanced Practice Midwife; Visit Provider Internal Medicine
DX: Z12.31 Encounter for screening mammogram for malignant neoplasm of breast (principal)
CPT/HCPCS: 77063; 77067

== ENCOUNTER → 2023-02-27 16:30 | Outpatient (BNV) | payer OTHER, SELFPAY | PROVIDERS: Absent Provider Advanced Practice Midwife; Visit Provider Radiology Diagnostic Radiology | DX: Z12.31 Encounter for screening mammogram for malignant neoplasm of breast (principal) | CPT/HCPCS: 77063; 77067 ==

== ENCOUNTER 2023-08-22 15:16 | Outpatient (AMB) | payer OTHER, SELFPAY ==
--- NOTE | 2023-08-22 15:19 | A.OFFPC_ITS ---
Vital Signs 08/22/23 15:22 Height 5 ft 7 in Weight 146 lb 8 oz BMI 22.9 BP 110/70 Blood Pressure Location Lt brachial Position Sitting Pulse 69 Pulse Source Pulse Oximeter Pulse Oximetry (%) 96 Oxygen Delivery Method Room Air Intake Visit Reasons: f/u Intake Note: Patient is here today for a physical. 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 Admitting Coordinator: Not Required per policy Accompanied by: Self / Same As Patient Allergies tramadol Allergy (Unknown, Verified 08/22/23 18:42) Unknown Medication List - Last Reconciled 08/22/23 by Eleazar Reeder MD celecoxib (Celebrex) 200 mg PO DAILY PRN gabapentin 200 mg PO DAILY rosuvastatin 5 mg PO DAILY zolpidem (Ambien) 10 mg PO BEDTIME Tobacco use date assessed: 08/22/23 Fall risk assessment: No Falls in past year Last assessed Fall Risk: 08/22/23 Dental Screening Dental Screen Date: 08/22/23 Did you have a dental visit in the last 12 months?: Yes Did you have a dental problem in the last 6 months where you did not have access to dental care?: No Was dental information given to patient?: Patient has dentist HPI f/u HPI Details 68 yr old female presents to the office for an annual physical exam. [facility] Medical History (Updated 08/22/23 @ 18:45 by Eleazar Reeder MD) Spondylolisthesis, lumbar region Elevated cholesterol Surgical History S/P epidural steroid injection Family History Mother No problems noted. Father No problems noted. Social History Housing: Apartment Alcohol intake: never Patient Tobacco Use Status: Former Tobacco user e-Cigarette/Vaping Use: Never Used Second Hand Smoke Exposure: Yes service: No Current occupational status: employed Current occupational exposures/hazards: No Cognitive needs: No Hearing needs: No Vision needs: Yes (Glasses) Questionnaire PHQ-9 Over the last 2 weeks, how often have you been bothered by any of the following problems? 1. Little interest or pleasure in doing things: not at all 2. Feeling down, depressed, or hopeless: not at all 3. Trouble falling or staying asleep, or sleeping too much: not at all 4. Feeling tired or having little energy: not at all 5. Poor appetite or overeating: not at all 6. Feeling bad about yourself - or that you are a failure or have let yourself or your family down: not at all 7. Trouble concentrating on things, such as reading the newspaper or watching television: not at all 8. Moving or speaking so slowly that other people could have noticed. Or the opposite - being so fidgety or restless that you have been moving around a lot more than usual: not at all 9. Thoughts that you would be better off or of hurting yourself in some way: not at all Total score: 0 Depression Screening Interpretation: Negative Depression Screening Done: Yes Source: Developed by Drs. Bert Plasencia, Maricel Carey, Pierre Garcia and colleagues, with an educational zack from [employer]. Thrive Questionnaire Date Thrive assessed: 08/22/23 I am a: Patient What is your living situation today?: I have a steady place to live Within the past 12 months, did the food you bought not last and you didn't have the money to get more?: Never true Within the past 12 months, did you worry whether your food would run out before you got money to buy more?: Never true Do you have trouble paying for medicines?: No Do you have trouble getting transportation to medical appointments?: No Do you have trouble paying your heating and electricity bill?: No Do you have trouble taking care of your child, family member or friend?: No Do you have trouble with day-to-day activities such as bathing, preparing meals, shopping, managing finances, etc.?: No Are you currently unemployed and looking for a job?: No Are you interested in more education?: No Currently or been in a relationship where the following occur: no concerns reported THRIVE Score: 0 AUDIT C Alcohol Use Questionnaire (AUDIT-C) 1. How often do you have a drink containing alcohol?: Never Total Score: 0 ZOIE-7 AMB Questionnaire ZOIE-7 Date ZOIE - 7 assessed: 08/22/23 Feeling nervous, anxious, or on edge: 0 = Not at all Not being able to stop or control worryin = Not at all Worrying too much about different things: 0 = Not at all Trouble relaxin = Not at all Being so restless that it is hard to sit still: 0 = Not at all Becoming easily annoyed or irritable: 0 = Not at all Feeling afraid as if something awful might happen: 0 = Not at all Total ZOIE-7 score (0-4 normal; 5-9 mild; 10-14 moderate; 15-21 severe): 0 Source: Developed by Drs. Bert Plasecnia, Maricel Carey, Pierre Garcia and colleagues, with an educational zack from [employer]. Physical exam (Primary Care) Vital Signs: Last Vital Signs Pulse 69 08/22/23 15:22 BP 110/70 08/22/23 15:22 Pulse Ox 96 08/22/23 15:22 Oxygen Delivery Method Room Air 08/22/23 15:22 Care Plan Goal for BP management: BP is in range. On no medications BMI result Body Mass Index 22.9 Tobacco/Smoking Status: Tobacco use Status Tobacco use date assessed 08/22/23 08/22/23 15:24 Patient Tobacco Use Status Former Tobacco user 08/22/23 15:24 e-Cigarette/Vaping Use Never Used 08/22/23 15:24 PHQ-9: PHQ-9 Score PHQ-9: Total score 0 08/22/23 16:41 Depression Screening Interpretation: Negative Thrive Assessment: Date of Thrive Assessment Date Thrive assessed 08/22/23 08/22/23 15:24 Currently or been in a relationship where the following occur: no concerns reported Const General: cooperative and healthy appearing Nutritional Appearance: well nourished Orientation/consciousness: patient oriented x3 Limitations: no limitations HENMT Head: Yes normal to inspection Eyes General: appearance normal, both eyes and all related structures Neck Neck: Yes normal visual inspection Chest Chest palpation & inspection: normal palpation of entire chest wall Resp Effort & Inspection: normal respiratory effort Neuro General: patient oriented x3 Assessment and Plan Assessment & Plan (1) Cough: Code(s): R05.9 - Cough, unspecified (2) Spondylolisthesis, lumbar region: Code(s): M43.16 - Spondylolisthesis, lumbar region (3) Annual physical exam: Code(s): Z00.00 - Encounter for general adult medical examination without abnormal findings Plan: Blood work has been ordered. Patient [place]. Her main concerns is the low back pain and she has documented spondylisthesis in the cervical and lumbar area. She is declining definitive surgery for the present, though conservative treatment including epidural injections have failed. Orders: Orders Liver Panel Today M43.16 - Spondylolisthesis, lumbar region, R05.9 - Cough, unspecified Lipid Panel Today M43.16 - Spondylolisthesis, lumbar region, R05.9 - Cough, unspecified Thyroid Stimulating Hormone Today M43.16 - Spondylolisthesis, lumbar region, R05.9 - Cough, unspecified Basic Metabolic Panel Today M43.16 - Spondylolisthesis, lumbar region, R05.9 - Cough, unspecified C Reactive Protein Today M43.16 - Spondylolisthesis, lumbar region, R05.9 - Cough, unspecified Complete Blood Count no Diff Today M43.16 - Spondylolisthesis, lumbar region, R05.9 - Cough, unspecified UA and rflx microscopic Today M43.16 - Spondylolisthesis, lumbar region, R05.9 - Cough, unspecified Coding Level of Care Code New Pt Prev Care >65yr (51234) Diagnoses Cough R05.9 Spondylolisthesis, lumbar region M43.16 Annual physical exam Z00.00
[2023-08-22 15:22] VITALS: BP 110/70; PULSE 69; O2SAT 96; BMI 22.9
== END 2023-08-22 15:56 | disposition home or self-care (01) ==
PROVIDERS: Visit Provider Internal Medicine
DX: Z00.00 Encounter for general adult medical examination without abnormal findings (principal); R05.9 Cough, unspecified; M43.16 Spondylolisthesis, lumbar region
CPT/HCPCS: 99397

== ENCOUNTER 2023-08-23 08:07 | Outpatient (REF) | payer OTHER, SELFPAY ==
[2023-08-23 09:25] LABS: Hemoglobin 13.7 g/dl (12.0-16.0); Mean Corpuscular HGB Conc 32.6 g/dl (31.0-35.0); Mean Corpuscular Volume 91.9 fL (80.0-98.0); Mean Platelet Volume 10.5 fL (9.4-12.3); Platelet Count 303 X10*3/uL (160-400); Red Blood Count 4.57 X10*6/uL (4.20-5.50); Red Cell Distribution Width 13.6 % (11.0-16.0); White Blood Count 6.3 X10*3/uL (4.8-10.8)
[2023-08-23 09:45] LABS: Appearance Urine Clear; Color Urine Yellow; Glucose Urine UA Negative (Negative); Leukocyte Esterase Urine Trace (Negative); Nitrite Urine Negative (Negative); Specific Gravity - Urine 1.015 (1.005-1.025); UMIC TRIGGER UA YES; Urine Blood Negative (Negative); Urine Ketones Negative (Negative); Urine Protein Negative (Neg-Trace)
[2023-08-23 10:11] LABS: Alanine Aminotransferase 27 U/L (0-31); Albumin Level 4.6 g/dL (3.5-5.0); Alkaline Phosphatase 71 U/L (39-117); Anion Gap 15 (12-20); Aspartate Amino Transferase 25 U/L (5-31); Bilirubin Direct 0.3 mg/dL (0.0-0.5); Bilirubin Total 0.9 mg/dL (0.0-1.0); Blood Urea Nitrogen 18 mg/dL (9-16); C Reactive Protein 0.11 mg/dL (< or = 0.50); Carbon Dioxide 26 mmol/L (22-29); Chloride 102 mmol/L (96-108); Cholesterol 202 mg/dL (<200); Estimated Glomerular Filt Rate > 60; Glucose Random 95 mg/dL (60-115); HDL Cholesterol 64 mg/dL (>40); LDL Cholesterol Calculated 117 mg/dL (<100); Sodium 139 mmol/L (135-145); Total Protein 7.7 g/dL (6.5-8.0); Triglycerides 109 mg/dL (<150)
[2023-08-23 10:17] LABS: Thyroid Stimulating Hormone 1.46 uIU/mL (0.32-4.0)
[2023-08-23 11:48] LABS: Bacteria Urine None Seen (None Seen); Hyaline Casts Urine 0-2 /LPF (0-2); RBC Urine 0-2 /HPF (0-2); Squamous Epithelial Cell Urine 0-2 /HPF (0-2); WBC Urine 0-5 /HPF (0-5)
== END 2023-08-23 08:08 | disposition home or self-care (01) ==
LOC: HO.LAB 08:07
PROVIDERS: PCP Internal Medicine; Visit Provider Internal Medicine
DX: Z13.6 Encounter for screening for cardiovascular disorders (principal); M43.16 Spondylolisthesis, lumbar region; R05.9 Cough, unspecified
CPT/HCPCS: 36415; 80048; 80061; 80076; 81001; 84443; 85027; 86140

== ENCOUNTER 2023-09-05 15:21 | Outpatient (REF) | payer OTHER, SELFPAY ==
[2023-09-14 15:33] LABS: HPV mRNA E6/E7 rflx Not Detected (Not Detected)
== END 2023-09-05 15:22 | disposition home or self-care (01) ==
LOC: HO.LNP 15:21
PROVIDERS: PCP Internal Medicine; Visit Provider Advanced Practice Midwife
DX: Z01.419 Encounter for gynecological examination (general) (routine) without abnormal findings (principal); Z11.51 Encounter for screening for human papillomavirus (HPV)
CPT/HCPCS: 87624; 88142

== ENCOUNTER 2023-09-05 15:21 | Outpatient (AMB) | payer OTHER, SELFPAY ==
[2023-09-05 15:27] VITALS: BP 114/70; BMI 22.2
--- NOTE | 2023-09-05 15:27 | MHC.OFFVIS ---
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 She is doing well with no concerns. Attempting to eat a healthy diet with vitamin D, and stays active with exercise-walking. Currently sexually active. Denies any vaginal dryness or irritation. Last pap smear; unknown date. Last mammogram; 2023. Colonoscopy is UTD. [facility] Medical History (Updated 09/05/23 @ 15:43 by Anabella Lovell CNM) Spondylolisthesis, lumbar region Elevated cholesterol Surgical History (Updated 09/05/23 @ 15:33 by BALDEV Mast) History of bunionectomy Hx of unilateral oophorectomy Hx of cholecystectomy S/P epidural steroid injection Family History Mother No problems noted. Father No problems noted. Social History Housing: Apartment Alcohol intake: never Patient Tobacco Use Status: Former Tobacco user e-Cigarette/Vaping Use: Never Used Second Hand Smoke Exposure: Yes Patient : No service: No Current occupational status: employed Current occupational exposures/hazards: No Cognitive needs: No Hearing needs: No Vision needs: Yes (Glasses) Female Reproductive History Menstrual Age of Menarche: 11 control method: none Total pregnancies: 2 Full term: 2 Number of Living Children: 2 Date of Mammogram: 02/27/23 Review of Systems Const All systems reviewed & are unremarkable except as noted in HPI and below Reports as per HPI Eyes Reports no additional complaints ENT Reports no additional complaints Card Reports no additional complaints Resp Reports no additional complaints GI Reports as per HPI and Reports no additional complaints Reports as per HPI Musc Reports no additional complaints Skin/Breast Reports as per HPI Neuro Reports no additional complaints Psych Reports no additional complaints Endo Reports no additional complaints Gui/Lymph Reports no additional complaints Aller/Immun Reports no additional complaints Physical Exam Vital Signs: Last Vital Signs BP 114/70 09/05/23 15:27 BMI result Body Mass Index 22.2 Const General: cooperative, healthy appearing, no acute distress, well developed and alert Orientation/consciousness: patient oriented x3 HEENT Head: Yes normal to inspection Eyes General: appearance normal, both eyes and all related structures Neck Neck: Yes normal visual inspection Thyroid: Thyroid normal Chest Chest palpation & inspection: normal inspection of the chest and other (no puckering, dimpling, peau de orange, retraction, discharge, masses) Breast/axilla inspection: normal inspection of the breasts Breast/axilla palpation: normal palpation of the breasts Resp Effort & Inspection: normal respiratory effort GI Inspection: Yes normal to inspection and Yes scar Palpation (GI): Soft to palpation Rectal Exam - Female: deferred General: Yes bladder normal to palpation External Female Exam: normal external appearance and normal appearance of the urethra Speculum Exam - Vagina: normal appearance of the vagina, normal palpation, normal vaginal discharge, vagina atrophic and other (Bled very slightly with Pap) Speculum Exam - Cervix: normal appearance of the cervix and normal palpation Bimanual exam- vagina & uterus: normal bimanual exam, normal palpation, uterine size normal, bladder normal to palpation, normal palpation and non-tender Bimanual Exam- Adnexa, other: no masses Skin General skin exam: no rashes or lesions noted Rashes: no rashes Neuro General: patient oriented x3 Cognition (Neuro): normal cognition Extrem General: Yes normal to inspection Psych Attitude: cooperative Thought process: Normal thought process present Assessment & Plan Assessment & Plan (1) Encounter for well woman exam with routine gynecological exam: Code(s): Z01.419 - Encounter for gynecological examination (general) (routine) without abnormal findings Category: Medical Plan: Discussed: Current recommendations for pap smears per ASCCP guidelines. Breast awareness, periodic self breast exams and yearly mammogram. Maintain a healthy lifestyle, well balanced diet including Calcium 1,200 mg and Vitamin D 800 IU daily, and routine exercise. Contact the office with any postmenopausal bleeding. Return to the office 1 year. This note is constructed using voice recognition software. While every effort has been made to ensure accuracy, cupola melter helper errors may have been included. Orders: Orders Pap Smear Today Z12.4 - Encounter for screening for malignant neoplasm of cervix Coding Level of Care Code Est Pt Prev Care >65y(92741) Diagnoses Encounter for well woman exam with routine gynecological exam Z01.419
== END 2023-09-05 16:22 | disposition home or self-care (01) ==
PROVIDERS: PCP Internal Medicine; Visit Provider Advanced Practice Midwife
DX: Z01.419 Encounter for gynecological examination (general) (routine) without abnormal findings (principal)
CPT/HCPCS: 99397

== ENCOUNTER 2023-10-11 11:46 | Outpatient (REF) | payer OTHER, SELFPAY ==
--- NOTE | ~2023-10-11 | MM_ITS ---
EXAMINATION: BONE DENSITOMETRY CLINICAL INDICATION: Asymptomatic menopausal state. COMPARISON: This is the patient's baseline examination. TECHNIQUE: Using a Civo DXA System (software version: 13.1) manufactured by [employer] dual-energy x-ray absorptiometry was performed of the lumbar spine and left hip. The images are of good technical quality. Summary results are attached. FINDINGS: AP SPINE L1-L2 (excluding L3 and L4): The data of L1-L4 has been changed to exclude the L3 and L4 vertebral bodies, because degenerative sclerosis at these levels may cause overestimation of lumbar spine density. BMD 0.947 g/cm2, Z-score -0.1, T-score -1.8, osteopenia. LEFT FEMUR, NECK: BMD 0.797 g/cm2, Z-score 0.0, T-score -1.7, osteopenia. LEFT FEMUR, TOTAL: BMD 0.830 g/cm2, Z-score 0.1, T-score -1.4, osteopenia. IDENTIFIED RISK FACTORS: Menopause. HISTORY OF FRACTURE: None listed. MEDICATIONS: Vitamin D. MM/XR DEXA axial skeleton IMPRESSION: 1. DIAGNOSIS: Osteopenia based on the lowest T-score value of -1.8 in the lumbar spine applying World Health Organization criteria. 2. 10-YEAR FRACTURE RISK PREDICTION, FRAX: Major osteoporotic fracture (clinical spine, forearm, hip or shoulder) 9.9%. Hip fracture 1.8%. 3. Treatment Recommendations: NOF guidelines recommend consideration for treatment in postmenopausal women and men age 50 and older presenting with the following: -A hip or vertebral (clinical or morphometric) fracture. -T-score less than or equal to -2.5 at the femoral neck or spine after appropriate evaluation to exclude secondary causes. -Low bone mass at the hip or spine and a 10-year fracture probability by FRAX of greater than or equal to 3% for hip fracture or greater than or equal to 20% for major osteoporotic fracture based on the [place] adapted WHO algorithm. 4. Other Recommendations: All treatment decisions require clinical judgment and consideration of individual patient factors, including patient preferences, comorbidities, previous drug use, risk factors not captured in the FRAX model (e.g. frailty, falls, vitamin D deficiency, increased bone turnover, interval significant decline in bone density) and possible under or overestimation of fracture risk by FRAX. Additional medical evaluation for secondary cause of low bone mineral density may be appropriate. FUTURE SCAN RECOMMENDATION: People with diagnosed cases of osteoporosis or at high risk for fracture should have regular bone mineral density tests. For patients eligible for Medicare, routine testing is allowed once every 2 years. The testing frequency can be increased to one year for patients who have rapidly progressing disease, those who are receiving or discontinuing medical therapy to restore bone mass, or have additional risk factors.
== END 2023-10-11 11:47 | disposition home or self-care (01) ==
LOC: HO.MAMMO 11:46
PROVIDERS: PCP Internal Medicine; Visit Provider Advanced Practice Midwife
DX: Z13.820 Encounter for screening for osteoporosis (principal); Z78.0 Asymptomatic menopausal state
CPT/HCPCS: 77080

== ENCOUNTER 2024-02-13 12:59 | Outpatient (AMB) | payer OTHER, SELFPAY ==
--- NOTE | 2024-02-13 12:59 | MHC.OFFVIS ---
Intake Visit Reasons: per Dr. Hdz Allergies tramadol Allergy (Unknown, Verified 09/05/23 15:32) Unknown HPI HPI per Dr. Hdz: Details: Patient is a 68-year-old female with a known history of lumbar spinal stenosis with occasional neurogenic claudication and lumbar radiculopathy. She has been managing the symptoms with daily gabapentin and is not interested in spine surgery. Over the last couple of months she has been experiencing increasing morning stiffness and pain in her lower back region which makes it difficult for her to get out of bed and walk to the restroom. She complains of pain in bilateral sacroiliac joint regions, that is exacerbated by standing up straight. The pain is described as 9/10 in intensity when she 1st wakes up. Over the course of the day the pain dissipates after she takes Celebrex. However she is concerned about her sleep and morning stiffness and is interested in intervention therapy to help reduce her Celebrex intake. She regularly exercises and is physically active. She continues to work as an anesthesiologist. [facility] Medical History (Updated 02/14/24 @ 11:59 by Jules Hdz MD) Spondylolisthesis, lumbar region Elevated cholesterol Surgical History (Updated 09/05/23 @ 15:33 by BALDEV Mast) History of bunionectomy Hx of unilateral oophorectomy Hx of cholecystectomy S/P epidural steroid injection Family History Mother No problems noted. Father No problems noted. Social History Housing: Apartment Alcohol intake: never Patient Tobacco Use Status: Former Tobacco user e-Cigarette/Vaping Use: Never Used Second Hand Smoke Exposure: Yes service: No Current occupational status: employed Current occupational exposures/hazards: No Cognitive needs: No Hearing needs: No Vision needs: Yes (Glasses) Female Reproductive History Menstrual Age of Menarche: 11 Telehealth Telehealth Telehealth Platform: Telephone Location of provider rendering services: practice address Location of patient: address on file Patient Identification confirmed using: Name, : Yes Telehealth method: voice only Patient verbally consented to treatment: Yes Patient verbally consented to billing insurance company: Yes Patient informed of any privacy concerns related to visit: Yes Minutes spent on Phone/Video with Pt.: 15 Assessment & Plan Assessment & Plan (1) Sacroiliac joint dysfunction: Code(s): M53.3 - Sacrococcygeal disorders, not elsewhere classified Category: Medical (2) Spondylolisthesis, lumbar region: Code(s): M43.16 - Spondylolisthesis, lumbar region Category: Medical Plan 68-year-old female with stable lumbar spinal stenosis and lumbar radiculopathy managed with gabapentin. Her current debilitating, morning time stiffness and symptoms appear to be secondary to sacroiliac joint dysfunction. We will plan for bilateral sacroiliac joint corticosteroid injections to help with this issue. If that does not address her symptoms, we will consider a potential repeat MRI to reassess her lumbar spine anatomy to guide further intervention. Patient is in agreement with the plan. Coding Level of Care Code Tele New Pt Level 3 (01576) Diagnoses Sacroiliac joint dysfunction M53.3 Spondylolisthesis, lumbar region M43.16
== END 2024-02-13 13:00 | disposition home or self-care (01) ==
LOC: HO.PMC 12:59
PROVIDERS: PCP Internal Medicine; Visit Provider Internal Medicine
DX: M53.3 Sacrococcygeal disorders, not elsewhere classified (principal); M43.16 Spondylolisthesis, lumbar region
CPT/HCPCS: 99203

== ENCOUNTER → 2024-02-13 12:59 | Outpatient (BNVA) | payer OTHER, SELFPAY | PROVIDERS: PCP Internal Medicine; Visit Provider Internal Medicine ==

== ENCOUNTER 2024-02-14 06:24 | Outpatient (REF) | payer OTHER, SELFPAY | END 2024-02-14 06:25 | disposition home or self-care (01) | LOC: CF 06:24 | PROVIDERS: Visit Provider Internal Medicine | DX: M53.3 Sacrococcygeal disorders, not elsewhere classified (principal); M54.9 Dorsalgia, unspecified | CPT/HCPCS: 27096; J2003; J2795; J3301 ==

== ENCOUNTER 2024-02-14 11:49 | Outpatient (AMB) | payer OTHER, SELFPAY ==
[2024-02-14 11:55] VITALS: BP 110/56; PULSE 57; O2SAT 98
--- NOTE | 2024-02-14 11:55 | A.OFFVIS_ITS ---
Vital Signs 02/14/24 11:55 02/14/24 12:19 BP 110/56 L 139/67 Blood Pressure Location Rt brachial Lt brachial Position Sitting Sitting Pulse 57 68 Pulse Source Pulse Oximeter Pulse Oximeter Pulse Oximetry (%) 98 98 Oxygen Delivery Method Room Air Room Air Intake Visit Reasons: cheri SIJ Allergies tramadol Allergy (Unknown, Verified 09/05/23 15:32) Unknown HPI HPI cheri SIJ: Details: Patient presents for scheduled procedure. Denies any recent cough, cold, infection, fever or other significant changes in medical history since last office visit. [facility] Medical History (Updated 02/14/24 @ 11:59 by Jules Hdz MD) Spondylolisthesis, lumbar region Elevated cholesterol Surgical History (Updated 09/05/23 @ 15:33 by BALDEV Mast) History of bunionectomy Hx of unilateral oophorectomy Hx of cholecystectomy S/P epidural steroid injection Family History Mother No problems noted. Father No problems noted. Social History Housing: Apartment Alcohol intake: never Patient Tobacco Use Status: Former Tobacco user e-Cigarette/Vaping Use: Never Used Second Hand Smoke Exposure: Yes service: No Current occupational status: employed Current occupational exposures/hazards: No Cognitive needs: No Hearing needs: No Vision needs: Yes (Glasses) Female Reproductive History Menstrual Age of Menarche: 11 Physical Exam Vital Signs: Last Vital Signs Pulse 68 02/14/24 12:19 BP 139/67 02/14/24 12:19 Pulse Ox 98 02/14/24 12:19 Oxygen Delivery Method Room Air 02/14/24 12:19 Office Procedures Joint Injection/Aspiration Joint Injection/Aspiration Details: Therapeutic Sacroiliac Joint Injection, Bilateral The procedure, its benefits, and its risks were explained and written informed consent was obtained from the patient. Immediately prior to starting the procedure, a time-out safety check was conducted. The patient's identification, procedure name, procedure site, and procedure laterality were confirmed with the patient. ? Patient was placed prone on the fluoroscopy table and the lumbosacral area was prepped using ChloraPrep and draped with sterile drapein standard fashion. The C-arm was rotated in a contralateral oblique fashion until the medial border of the iliac crest no longer foreshadowed the posterior sacroiliac joint line. The skin and subcutaneous tissue was anesthetized using 1 mL of 0.75% plain lidocaine with 1.5-inch 25-gauge needle in the middle region of the joint line.? A 3.5-inch 22-gauge spinal needle with small bend on the tip was slowly advanced towards the joint line, coaxial to the x-ray beam. Once bony content was obtained, the needle was easily slid into the intra-articular space.? Intra- articular needle position was confirmed using lateral fluoroscopy.? A total volume of 2.5mL of solution containing 40 mg triamcinolone and rest 0.5% of ropivacaine was injected intra-articularly. The stylet was reinserted and needle was removed. The same process was then repeated on the other side. The patient tolerated the procedure well. Patient denied any lower extremity weakness or numbness. Patient was observed for 30 min and was discharged after fulfilling the standard discharge criteria. Coding 92362 - Sacroiliac (Bilateral) Procedure code (CPT) selection complete Assessment & Plan Assessment & Plan (1) Sacroiliac joint dysfunction: Code(s): M53.3 - Sacrococcygeal disorders, not elsewhere classified Category: Medical Plan Patient is status post bilateral therapeutic SI joint injections. Patient tolerated procedure well and was discharged home in stable condition with discharge instructions. All questions were answered. We will follow-up via telephone or in clinic to assess response to therapy. A fo llow-up appointment was made during today's visit. Orders: Orders FL guidance in treatment room Today M54.9 - Dorsalgia, unspecified Coding Level of Care Code Procedure Only Diagnoses Sacroiliac joint dysfunction M53.3 CPT Codes Coding - Joint 9: 28454 - Sacroiliac ([id number])
[2024-02-14 12:19] VITALS: BP 139/67; PULSE 68; O2SAT 98
== END 2024-02-14 12:20 | disposition home or self-care (01) ==
LOC: HO.PMCPRC 11:49
PROVIDERS: PCP Internal Medicine; Visit Provider Internal Medicine
DX: M53.3 Sacrococcygeal disorders, not elsewhere classified (principal)
CPT/HCPCS: 27096

== ENCOUNTER 2024-07-16 10:59 | Outpatient (REF) | payer OTHER, SELFPAY ==
--- NOTE | ~2024-07-16 | CT_ITS ---
EXAMINATION: CT CHEST WITH CONTRAST CLINICAL INFORMATION: Solitary pulmonary nodule. COMPARISON: None available. TECHNIQUE: Multidetector volumetric CT imaging of the chest was obtained after the administration of 65 mL of Omnipaque 350 intravenous contrast without immediate adverse reactions. Axial MIP volume rendering provided. Sagittal and coronal reformatted images were obtained. This CT examination was performed using dose optimization techniques as appropriate, variously including the following: *Automated exposure control *Adjustment of mA and/or kV according to patient size (this includes techniques or standardized protocols for targeted exams where dose is matched to indication/reason for exam; i.e. extremities or head) *Use of iterative reconstruction technique FINDINGS: NODULES: -4 mm nodule super segment right lower lobe (series 4, image 60). -3 mm nodule anterior right upper lobe (series 4, image 62). -3 mm nodule anterior right middle lobe (series 4, image 123). -2 mm calcified granuloma left upper lobe laterally (series 4, image 55). -6 mm groundglass nodule in the lingular segment left upper lobe (series 4, image 87). -3 mm pleural-based nodule superior segment left lower lobe laterally (series 4, image 90). LUNGS: -There is minimal centrilobular emphysema. -There is mild linear scarring in the right lower lobe inferomedially. -No additional abnormal opacities or consolidations. -Small airways appear normal. -Central airways appear patent. -No pleural effusion or pneumothorax. MEDIASTINUM: -Normal thyroid. -No mediastinal adenopathy or mass. -Aorta is normal in caliber and course. -Main pulmonary artery is normal in caliber. -No esophageal abnormality. -Heart size is normal. No pericardial effusion. AXILLA/CHEST WALL: No mass or lymphadenopathy. UPPER ABDOMEN: -There has been a cholecystectomy. -Remainder of the imaged upper abdominal contents appear normal. OSSEOUS STRUCTURES: -No lytic or blastic bone lesions. -Mild spinal degenerative changes. CT/CT chest w IV con IMPRESSION: 1. There are a few scattered pulmonary micronodules. Largest solid nodule superior segment right lower lobe measuring 4 mm. There is a groundglass nodule in the left upper lobe measuring 6 mm. One-year follow-up suggested in a high-risk patient. 2. Minimal centrilobular emphysema. No active pulmonary disease. 3. Cholecystectomy. Electronically signed by: Reyes Doran MD 07/16/2024 02:02 PM EDT RP
[2024-07-16 12:06] LABS: Hemoglobin 13.5 g/dl (12.0-16.0); Mean Corpuscular HGB Conc 32.9 g/dl (31.0-35.0); Mean Corpuscular Hemoglobin 30.3 pg (27.0-33.0); Mean Corpuscular Volume 91.9 fL (80.0-98.0); Mean Platelet Volume 10.8 fL (9.4-12.3); Platelet Count 327 X10*3/uL (160-400); Red Blood Count 4.46 X10*6/uL (4.20-5.50); Red Cell Distribution Width 13.2 % (11.0-16.0); White Blood Count 5.9 X10*3/uL (4.8-10.8)
[2024-07-16 12:37] LABS: Alanine Aminotransferase 24 U/L (0-31); Albumin Level 4.4 g/dL (3.5-5.0); Alkaline Phosphatase 72 U/L (39-117); Anion Gap 9 (12-20); Aspartate Amino Transferase 21 U/L (5-31); Bilirubin Direct 0.2 mg/dL (0.0-0.5); Bilirubin Total 0.7 mg/dL (0.0-1.0); Blood Urea Nitrogen 17 mg/dL (9-16); Calcium 9.6 mg/dL (8.4-10.2); Carbon Dioxide 29 mmol/L (22-29); Chloride 106 mmol/L (96-108); Cholesterol 173 mg/dL (<200); Estimated Glomerular Filt Rate > 60; Glucose Random 93 mg/dL (60-115); HDL Cholesterol 62 mg/dL (>40); LDL Cholesterol Calculated 73 mg/dL (<100); Sodium 140 mmol/L (135-145); Total Protein 7.1 g/dL (6.5-8.0); Triglycerides 194 mg/dL (<150)
[2024-07-16 12:55] LABS: Thyroid Stimulating Hormone 0.55 uIU/mL (0.32-4.0)
--- OUTSIDE RECORDS SUMMARY | 2024-07-16 13:11 | XMS_ITS | Patient Health Record ---
Author [facility] Address [address] [address] Care Team Providers Care Chandelier Maker Name Role Phone Lilli, Kartik Primary Care Provider Ra Pyle [phone] Allergies Allergen (clinical drug ingredient) Drug/Non Drug Allergy documented on EMR Reaction Allergy Type Onset Date Status tramadol Tramadol Unknown Drug Allergy Active Reason For Referral No Information Medications Medication SIG (Take, Route, Fr equency, Duration) Notes Start Date End Date Status Crestor 5 MG 1 tablet Orally Once a day for 30 day(s) Active Gabapentin 300 MG 1 capsule Orally Onc e a day for 30 day(s) Active Immunizations Vaccine Route Administration Date Status Comme nts COVID-19 Pfizer BioNTech Vaccine Unknown 05/08/2021 Adm inistered Social History Tobacco Use: Social History Observation Description Date Details (start date - stop date) Former Smoker NA - NA Tobacco Use/Smoking Question Answer Notes Are you a: former smoker Additional Findings: Tobacco Non-User Current no n-smoker Alcohol Screen Question Answer Notes Did you have a drink containing alcohol in the p ast year? No Points 0 Interpretation Negative Tobacco use other than smoking: Question Answer Notes Are you an other tobacco user? No Plan Of Treatment Pending Test Test Name Order Date X ray : Foot, left 3V 07/05/2021 X ray : Foot, right 3V 07/05/2021 Insurance Providers Payer Name Payer Address Payer Phone Subscriber Number Group Number Insured Name Patient Relationship to Insured Coverage Start Date Coverage End Date Blue Benefits [address] [address] [place] [address] [id number] Agata Rivas Self - patient is the insured Medical (General) History Medical History History ICD Code Back,Hip,and Knee pain Chicken pox Measles Mumps Surgical History Surgery Date(Month/Year) cholecystectomy 1999 appendectomy 1982 ovarian cyst resection 1982 bunionectomy
--- OUTSIDE RECORDS SUMMARY | 2024-07-16 13:11 | XMS_ITS | Patient Health Record ---
Author Organization [facility] Address [address] [place] [address] Care Team Providers Care Electronic Operator Name Role Phone SAHARA WAGNER Primary Care Provider Mani Sorensen Jr Unavailable [phone] Allergies Allergen (clinical drug ingredient) Drug/Non Drug Allergy documented on EMR Reaction Allergy Type Onset Date Status tramadol Tramadol HCl Unknown Drug Allergy Acti ve Reason For Referral No Information Medications Medication SIG (Take, Route, Frequency, Duration) Notes Start Date End Date Status Creon Active Crestor Active Ambien Active Gabapentin Active MiraLax (colon prep) 8.3 ounce ((238) grams mixed with Gatorade or Crystal Light orally begin at 5:00 p.m. the day before the procedure for 1 day 08/10/2020 Active Social History Tobacco Use: Social History Observation Description Date Details (start date - stop date) Never Smoker NA - NA Tobacco Use/Smoking Question Answer Notes Patient is a nonsmoker Alcohol Screen Question Answer Notes Did you have a drink containing alcohol in the p ast year? No Points 0 Interpretation Negative Problems Problem Type SNOMED Code ICD Code Onset Dates Problem Status W/U Status Risk Notes Problem 45937377 Epigastric pain (R10.13) Active confirmed Problem 53322627 Diarrhea, unspecified type (R19.7) Active confirmed Problem 709478874 Pancreatic duct stricture (K86.89) Active confirmed Plan Of Treatment Pending Test Test Name Order Date MRI ABD NO CONTRAST (MRCP) 08/20/2020 MRI ABD W&WO CONTRAST 08/18/2020 MRI ABD W&WO CONTRAST 08/20/2020 Future Test Test Name Order Date UPPER GI ENDOSCOPY 08/10/2020 COLONOSCOPY 08/10/2020 Insurance Providers Payer Name Payer Address Payer Phone Subscriber Number Group Number Insured Name Patient Relationship to Insured Coverage Start Date Coverage End Date [employer] [address] [address] [place] [address] [id number] 3 CHASE DUNBAR Self - patient is the insured Medical (General) History Medical History History ICD Code pancreatic duct stricture with pancreas divisum seen on MRI 2017 or 18 pancreatitis, gallstones/col on bile duct stone status post ERCP with post ERCP pancreatitis 1998 hx of gallstones/common bille duct stone 1998 spinal stenosis/ herniated disc hx of colon polyps, tubular adenoma in 2011, last colonoscopy 2017 benign polyps per patient angioedema Surgical History Surgery Date(Month/Year) appendectomy and ovarian cyst resection 1982 lap cholecystectomy 1998 ERCP 1998
[2024-07-16] MEDS: iohexoL 350 MG/ML 100 ML INFUS..BTL IV (13:34)
[2024-07-16 13:40] LABS: Appearance Urine Clear; Color Urine Yellow; Glucose Urine UA Negative (Negative); Leukocyte Esterase Urine Moderate (2+) (Negative); Nitrite Urine Negative (Negative); Specific Gravity - Urine 1.015 (1.005-1.025); UMIC TRIGGER UA YES; Urine Blood Negative (Negative); Urine Ketones Negative (Negative); Urine Protein Negative (Neg-Trace)
[2024-07-16 14:20] LABS: Bacteria Urine None Seen (None Seen); Hyaline Casts Urine 0-2 /LPF (0-2); RBC Urine 0-2 /HPF (0-2); Squamous Epithelial Cell Urine 0-2 /HPF (0-2); WBC Urine 0-5 /HPF (0-5)
== END 2024-07-16 11:00 | disposition home or self-care (01) ==
LOC: HO.CT 10:59
PROVIDERS: PCP Internal Medicine; Visit Provider Internal Medicine
DX: R91.1 Solitary pulmonary nodule (principal); M43.16 Spondylolisthesis, lumbar region; R05.9 Cough, unspecified; Z13.6 Encounter for screening for cardiovascular disorders
CPT/HCPCS: 36415; 71260; 80048; 80061; 80076; 81001; 81003; 84443; 85027; Q9967

== ENCOUNTER → 2024-07-16 12:53 | Outpatient (BNV) | payer OTHER, SELFPAY | PROVIDERS: PCP Internal Medicine; Visit Provider Radiology Diagnostic Radiology | DX: R91.8 Other nonspecific abnormal finding of lung field (principal) | CPT/HCPCS: 71260 ==

== ENCOUNTER 2024-07-29 15:33 | Outpatient (AMB) | payer OTHER, SELFPAY ==
[2024-07-29 15:39] VITALS: BP 122/70; PULSE 68; RESP 14; TEMP 36.4; O2SAT 97; BMI 23.2
--- NOTE | 2024-07-29 15:39 | MHC.PC.OV ---
Vital Signs 07/29/24 15:39 Height 5 ft 7 in Weight 148 lb BMI 23.2 BP 122/70 Respiration 14 Pulse 68 Pulse Source Pulse Oximeter Temp 97.6 F Temp Source Temporal Artery Scan Pulse Oximetry (%) 97 Oxygen Delivery Method Room Air Intake Visit Reasons: per request from Anesthesia Mandarin Speaking Nanny Required: No Accompanied by: Self / Same As Patient Allergies oxycodone Allergy (Mild, Verified 08/02/24 06:28) Nausea tramadol Allergy (Unknown, Verified 08/02/24 06:28) Unknown Medication List - Last Reconciled 08/02/24 by Eleazar Reeder MD celecoxib (Celebrex) 200 mg PO DAILY PRN gabapentin 200 mg PO DAILY rosuvastatin 10 mg PO DAILY zolpidem (Ambien) 10 mg PO BEDTIME Tobacco use date assessed: 07/29/24 Fall risk assessment: No Falls in past year Last assessed Fall Risk: 07/29/24 Dental Screening Dental Screen Date: 07/29/24 Did you have a dental visit in the last 12 months?: Yes Did you have a dental problem in the last 6 months where you did not have access to dental care?: No Was dental information given to patient?: Patient has dentist HPI per request from Anesthesia HPI Details 69-year-old female presents to the office requesting a preop clearance. Patient is scheduled for cosmetic facial surgery under [facility]. Date of surgery: 08/04/2024. 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 Father No problems noted. Social History Housing: Apartment Alcohol intake: never Patient Tobacco Use Status: Former Tobacco user e-Cigarette/Vaping Use: Never Used Second Hand Smoke Exposure: Yes service: No Current occupational status: employed Current occupation: anesthesia doctor Current occupational exposures/hazards: No Cognitive needs: No Hearing needs: No Vision needs: Yes (Glasses) Female Reproductive History Menstrual Age of Menarche: 11 Questionnaire PHQ-9 Over the last 2 weeks, how often have you been bothered by any of the following problems? 1. Little interest or pleasure in doing things: not at all 2. Feeling down, depressed, or hopeless: not at all 3. Trouble falling or staying asleep, or sleeping too much: not at all 4. Feeling tired or having little energy: not at all 5. Poor appetite or overeating: not at all 6. Feeling bad about yourself - or that you are a failure or have let yourself or your family down: not at all 7. Trouble concentrating on things, such as reading the newspaper or watching television: not at all 8. Moving or speaking so slowly that other people could have noticed. Or the opposite - being so fidgety or restless that you have been moving around a lot more than usual: not at all 9. Thoughts that you would be better off or of hurting yourself in some way: not at all Total score: 0 Depression Screening Interpretation: Negative Depression Screening Done: Yes Source: Developed by Drs. Bert Plasencia, Maricel Carey, Pierre Garcia and colleagues, with an educational zack from [employer]. Thrive Questionnaire Date Thrive assessed: 07/29/24 I am a: Patient What is your living situation today?: I have a steady place to live Within the past 12 months, did the food you bought not last and you didn't have the money to get more?: Never true Within the past 12 months, did you worry whether your food would run out before you got money to buy more?: Never true Do you have trouble paying for medicines?: No Do you have trouble getting transportation to medical appointments?: No Do you have trouble paying your heating and electricity bill?: No Do you have trouble taking care of your child, family member or friend?: No Do you have trouble with day-to-day activities such as bathing, preparing meals, shopping, managing finances, etc.?: No Are you currently unemployed and looking for a job?: No Are you interested in more education?: No Please select the resources that you would like help with: None Currently or been in a relationship where the following occur: No concerns reported THRIVE Score: 0 AUDIT C Alcohol Use Questionnaire (AUDIT-C) 1. How often do you have a drink containing alcohol?: Never 3. How often do you have six or more drinks on one occasion?: Never Total Score: 0 ZOIE-7 AMB Questionnaire ZOIE-7 Date ZOIE - 7 assessed: 07/29/24 Feeling nervous, anxious, or on edge: 0 = Not at all Not being able to stop or control worryin = Not at all Worrying too much about different things: 0 = Not at all Trouble relaxin = Not at all Being so restless that it is hard to sit still: 0 = Not at all Becoming easily annoyed or irritable: 0 = Not at all Feeling afraid as if something awful might happen: 0 = Not at all Total ZOIE-7 score (0-4 normal; 5-9 mild; 10-14 moderate; 15-21 severe): 0 Source: Developed by Drs. Bert Plasencia, Maricel Carey, Pierre Garcia and colleagues, with an educational zack from [employer]. Physical exam (Primary Care) Vital Signs: Last Vital Signs Temp 97.6 F 07/29/24 15:39 Pulse 68 07/29/24 15:39 Resp 14 07/29/24 15:39 BP 122/70 07/29/24 15:39 Pulse Ox 97 07/29/24 15:39 Oxygen Delivery Method Room Air 07/29/24 15:39 Care Plan Goal for BP management: Blood pressure is in range. Not on any medications. BMI result Body Mass Index 23.2 Tobacco/Smoking Status: Tobacco use Status Tobacco use date assessed 07/29/24 07/29/24 15:42 Patient Tobacco Use Status Former Tobacco user 07/29/24 15:42 e-Cigarette/Vaping Use Never Used 07/29/24 15:42 PHQ-9: PHQ-9 Score PHQ-9: Total score 0 07/29/24 16:06 Depression Screening Interpretation: Negative Thrive Assessment: Date of Thrive Assessment Date Thrive assessed 07/29/24 07/29/24 15:42 Currently or been in a relationship where the following occur: No concerns reported Advance Care Planning discussion: Exists, not on file Date of discussion: 07/29/24 Const General: cooperative and healthy appearing Nutritional Appearance: well nourished Orientation/consciousness: patient oriented x3 Limitations: no limitations HENMT Head: Yes normal to inspection Eyes General: appearance normal, both eyes and all related structures Neck Neck: Yes normal visual inspection Chest Chest palpation & inspection: normal palpation of entire chest wall Resp Effort & Inspection: normal respiratory effort Neuro General: patient oriented x3 Coding Level of Care Code Est Pt Level 4 (29765) Complex EM visit Add On G2211 Diagnoses 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 Patient can proceed for surgery. Orders: Orders ECG 12 lead EKG 07/30/24 R07.89 - Other chest pain
--- OUTSIDE RECORDS SUMMARY | 2024-07-29 18:31 | XMS_ITS | Patient Health Record ---
Author Organization [facility] Address [address] [place] [address] Care Team Providers Care Spice Cleaner Name Role Phone SAHARA WAGNER Primary Care Provider Mani Sorensen Jr Unavailable Allergies Allergen (clinical drug ingredient) Drug/Non Drug [...] Problem Status W/U Status Risk Notes Problem 40836231 Epigastric pain (R10.13) Active confirmed Problem 43438490 Diarrhea, unspecified type (R19.7) Active confirmed Problem 228876355 Pancreatic duct stricture (K86.89) Active confirmed Plan [...] [employer] [address] [address] [place] [address] [id number] 3 CHASE DUNBAR Self - patient is [...]
--- OUTSIDE RECORDS SUMMARY | 2024-07-29 18:31 | XMS_ITS | Patient Health Record ---
Author [facility] Address [address] [place] [address] Care Team Providers Care Business Librarian Name Role Phone Lilli, Kartik Primary Care Provider [phone] Ra Pyle [phone] Allergies Allergen (clinical drug ingredient) Drug/Non Drug [...] Coverage End Date Blue Benefits [address] [address] [place] [address] [id number] Agata Rivas Self - patient is the insured Medical (General) History Medical History History ICD Code Back,Hip,and Knee pain Chicken pox Measles Mumps Surgical History Surgery Date(Month/Year) cholecystectomy 1999 appendectomy 1982 ovarian cyst resection 1982 bunionectomy
== END 2024-07-29 16:28 | disposition home or self-care (01) ==
LOC: HO.HMCSH 15:33
PROVIDERS: PCP Internal Medicine; Visit Provider Internal Medicine
DX: H02.409 Unspecified ptosis of unspecified eyelid (principal); Z00.00 Encounter for general adult medical examination without abnormal findings

== ENCOUNTER → 2024-07-29 15:33 | Outpatient (BNVA) | payer OTHER, SELFPAY | PROVIDERS: PCP Internal Medicine; Visit Provider Internal Medicine | DX: Z13.89 Encounter for screening for other disorder (principal) ==

== ENCOUNTER → 2024-07-30 10:10 | Outpatient (REF) | payer OTHER, SELFPAY ==
--- NOTE | 2024-07-30 10:14 | ECG_ITS ---
Test Reason : cp Blood Pressure : */* mmHG Vent. Rate : 55 BPM Atrial Rate : 55 BPM P-R Int : 148 ms QRS Dur : 72 ms QT Int : 436 ms P-R-T Axes : 20 23 24 degrees QTcB Int : 417 ms Sinus bradycardia Septal infarct , age undetermined Abnormal ECG No previous ECGs available Referred By: Eleazar Reeder Electronically Signed By: Guy Harris
--- OUTSIDE RECORDS SUMMARY | 2024-07-30 11:27 | XMS_ITS | Patient Health Record ---
Author Organization [facility] Address [address] [place] [address] Care Team Providers Care Cisco Unified Communications Engineer Name Role Phone SAHARA WAGNER Primary Care Provider Mani Sorensen Jr Unavailable [phone] Allergies Allergen (clinical drug ingredient) Drug/Non Drug [...] Problem Status W/U Status Risk Notes Problem 50603943 Epigastric pain (R10.13) Active confirmed Problem 92538421 Diarrhea, unspecified type (R19.7) Active confirmed Problem 454793268 Pancreatic duct stricture (K86.89) Active confirmed Plan [...] [employer] [address] [address] [place] [address] [id number] 3 CHASE DUNBAR Self - patient is [...]
--- OUTSIDE RECORDS SUMMARY | 2024-07-30 11:27 | XMS_ITS | Patient Health Record ---
Author Organization [facility] Address [address] [place] [address] Care Team Providers Care Data Communications Analyst Name Role Phone Lilli, Kartik Primary Care Provider [phone] Ra Pyle [phone] Allergies Allergen (clinical drug ingredient) Drug/Non Drug [...] Coverage End Date Blue Benefits [address] [address] [place] [address] [id number] Agata Rivas Self - patient is the insured Medical (General) History Medical History History ICD Code Back,Hip,and Knee pain Chicken pox Measles Mumps Surgical History Surgery Date(Month/Year) cholecystectomy 1999 appendectomy 1982 ovarian cyst resection 1982 bunionectomy
== END ==
LOC: HO.CARD 10:10
PROVIDERS: PCP Internal Medicine; Visit Provider Internal Medicine
DX: R07.89 Other chest pain (principal)
CPT/HCPCS: 93005

== ENCOUNTER → 2024-07-30 10:14 | Outpatient (BNV) | payer OTHER, SELFPAY | PROVIDERS: PCP Internal Medicine; Visit Provider Internal Medicine Cardiovascular Disease | DX: R00.1 Bradycardia, unspecified (principal) | CPT/HCPCS: 93010 ==

== ENCOUNTER 2024-09-09 15:06 | Outpatient (AMB) | payer OTHER, SELFPAY ==
--- NOTE | 2024-09-09 15:08 | A.OFFVIS_ITS ---
Vital Signs 09/09/24 15:11 Height 5 ft 7 in Weight 144 lb BMI 22.6 BP 100/60 Intake Visit Reasons: MOVIE ACTOR annual exam Cost Accounting Analyst: Cost Accounting Analyst Present (Rosey) Allergies oxycodone Allergy (Mild, Verified 09/09/24 15:09) Nausea tramadol Allergy (Unknown, Verified 09/09/24 15:09) Unknown HPI Comments Details: She is a postmenopausal woman presenting for her annual radio television technical director examination. Plans to move to [facility] in the fall. She is doing well with no radio television technical director concerns. Currently sexually active. Denies any vaginal concerns. Reports a healthy diet. Walks for exercise. Hx. of back pain. Last pap smear; 2023, negative. Last mammogram; 2022. Colonoscopy is UTD. [facility] Medical History Ptosis due to aging Lung nodule Spondylolisthesis, lumbar region Elevated cholesterol Surgical History History of colonoscopy (~08/11/20) History of bunionectomy Hx of unilateral oophorectomy Hx of cholecystectomy S/P epidural steroid injection Family History Mother No problems noted. Father No problems noted. Social History Housing: Apartment Alcohol intake: never Patient Tobacco Use Status: Former Tobacco user e-Cigarette/Vaping Use: Never Used Second Hand Smoke Exposure: Yes service: No Current occupational status: employed Current occupation: anesthesia doctor Current occupational exposures/hazards: No Cognitive needs: No Hearing needs: No Vision needs: Yes (Glasses) Female Reproductive History Menstrual Age of Menarche: 11 Total pregnancies: 2 Full term: 2 Number of Living Children: 2 Date of last pap smear: 09/05/23 (neg pap and hpv) Date of Mammogram: 02/27/23 (Birad 1) Date of last Bone Density Screenin10/11/23 Review of Systems Const All systems reviewed & are unremarkable except as noted in HPI and below Reports as per HPI Eyes Reports no additional complaints ENT Reports no additional complaints Card Reports no additional complaints Resp Reports no additional complaints GI Reports as per HPI and Reports no additional complaints Reports as per HPI Musc Reports no additional complaints Skin/Breast Reports as per HPI Neuro Reports no additional complaints Psych Reports no additional complaints Endo Reports no additional complaints Gui/Lymph Reports no additional complaints Aller/Immun Reports no additional complaints Physical Exam Const General: cooperative, healthy appearing, no acute distress, well developed and alert Orientation/consciousness: patient oriented x3 HEENT Head: Yes normal to inspection Eyes General: appearance normal, both eyes and all related structures Neck Neck: Yes normal visual inspection Thyroid: Thyroid normal Chest Chest palpation & inspection: normal inspection of the chest and other (no puckering, dimpling, peau de orange, retraction, discharge, masses) Breast/axilla inspection: normal inspection of the breasts Breast/axilla palpation: normal palpation of the breasts Resp Effort & Inspection: normal respiratory effort GI Inspection: Yes normal to inspection and Yes scar Palpation (GI): Soft to palpation Rectal Exam - Female: deferred General: Yes bladder normal to palpation External Female Exam: normal external appearance and normal appearance of the urethra Speculum Exam - Vagina: normal appearance of the vagina, normal palpation, normal vaginal discharge and vagina atrophic Speculum Exam - Cervix: normal appearance of the cervix and normal palpation Bimanual exam- vagina & uterus: normal bimanual exam, normal palpation, uterine size normal, bladder normal to palpation, normal palpation and non-tender Bimanual Exam- Adnexa, other: no masses Skin General skin exam: no rashes or lesions noted Rashes: no rashes Neuro General: patient oriented x3 Cognition (Neuro): normal cognition Extrem General: Yes normal to inspection Psych Attitude: cooperative Thought process: Normal thought process present Assessment & Plan Assessment & Plan (1) Encounter for well woman exam with routine gynecological exam: Code(s): Z01.419 - Encounter for gynecological examination (general) (routine) without abnormal findings Category: Medical Plan Discussed: Current recommendations for pap smears per ASCCP guidelines. Breast awareness, periodic self breast exams and yearly mammogram. Maintain a healthy lifestyle, well balanced diet. Contact the office with any postmenopausal bleeding. Patient verbalizes understanding and agrees to the plan of care. She was given opportunity to ask questions and all questions were answered to the best of my ability. Release for records prior to move. RTO in 1 year for annual radio television technical director exam. This note is constructed using voice recognition software. While every effort has been made to ensure accuracy, siding stapler errors may have been included. Orders: Orders MM tomosynthesis screening BI Today Z12.31 - Encounter for screening mammogram for malignant neoplasm of breast Coding Level of Care Code Est Pt Prev Care >65y(96353) Diagnoses Encounter for well woman exam with routine gynecological exam Z01.419
[2024-09-09 15:11] VITALS: BP 100/60; BMI 22.6
--- OUTSIDE RECORDS SUMMARY | 2024-09-09 16:12 | XMS_ITS | Patient Health Record ---
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 [address] [place] [address] [id number] CHASE DUNBAR Self - patient is [...]
--- OUTSIDE RECORDS SUMMARY | 2024-09-09 16:12 | XMS_ITS | Patient Health Record ---
[facility] Address [address] [place] [address] Care Team Providers Care Spin Table Operator Name Role Phone Lilli, Kartik Primary Care Provider Ra Pyle [phone] Allergies Allergen (clinical drug ingredient) Drug/Non Drug [...] Coverage End Date Blue Benefits [address] [address] [place] [address] [id number] Agata Rivas Self - patient is the insured Medical (General) History Medical History History ICD Code Back,Hip,and Knee pain Chicken pox Measles Mumps Surgical History Surgery Date(Month/Year) cholecystectomy 1999 appendectomy 1982 ovarian cyst resection 1982 bunionectomy
== END 2024-09-09 18:39 | disposition home or self-care (01) ==
LOC: HO.HWS 15:06
PROVIDERS: PCP Internal Medicine; Visit Provider Advanced Practice Midwife
DX: Z01.419 Encounter for gynecological examination (general) (routine) without abnormal findings (principal)
CPT/HCPCS: 99397; 99459

== ENCOUNTER → 2024-09-09 15:06 | Outpatient (BNVA) | payer OTHER, SELFPAY | PROVIDERS: PCP Internal Medicine; Visit Provider Advanced Practice Midwife ==

== ENCOUNTER 2024-09-23 07:59 | Outpatient (REF) | payer OTHER, SELFPAY ==
--- OUTSIDE RECORDS SUMMARY | 2024-09-23 08:03 | XMS_ITS | Patient Health Record ---
Author Organization [facility] Address [address] [address] Care Team Providers Care Mincemeat Maker Name Role Phone Trinity Hurtado Unavailable [phone] Reason For Referral No Information Medications Medication SIG (Take, Route, Frequency, Duration) Notes Start Date End Date Status Crestor Active Plan Of Treatment No Information Insurance Providers Payer Name Payer Address Payer Phone Subscriber Number Group Number Insured Name Patient Relationship to Insured Coverage Start Date Coverage End Date [place] [employer] PPO [address] [place] [phone] [id number] CHASE ROSADO Self - patient is the insured 2
[2024-09-23 08:42] LABS: Hematocrit 37.3 % (37.0-47.0); Hemoglobin 12.3 g/dl (12.0-16.0); Mean Platelet Volume 10.6 fL (9.4-12.3); Platelet Count 288 X10*3/uL (160-400); Red Cell Distribution Width 13.7 % (11.0-16.0); White Blood Count 5.2 X10*3/uL (4.8-10.8)
[2024-09-23 08:49] LABS: Appearance Urine Clear; Color Urine Yellow; Glucose Urine UA Negative (Negative); Leukocyte Esterase Urine Moderate (2+) (Negative); Nitrite Urine Negative (Negative); PH 7.5 (5.0-9.0); Specific Gravity - Urine 1.015 (1.005-1.025); UMIC TRIGGER UA YES; Urine Blood Negative (Negative); Urine Ketones Negative (Negative); Urine Protein Negative (Neg-Trace)
[2024-09-23 08:54] LABS: Bacteria Urine None Seen (None Seen); Hyaline Casts Urine 0-2 /LPF (0-2); RBC Urine 0-2 /HPF (0-2); Squamous Epithelial Cell Urine 0-2 /HPF (0-2)
[2024-09-23 09:15] LABS: Alanine Aminotransferase 27 U/L (0-31); Albumin Level 4.4 g/dL (3.5-5.0); Alkaline Phosphatase 71 U/L (39-117); Anion Gap 10 (12-20); Aspartate Amino Transferase 26 U/L (5-31); Bilirubin Direct 0.1 mg/dL (0.0-0.5); Bilirubin Total 0.4 mg/dL (0.0-1.0); Blood Urea Nitrogen 17 mg/dL (9-16); Calcium 9.3 mg/dL (8.4-10.2); Carbon Dioxide 29 mmol/L (22-29); Chloride 107 mmol/L (96-108); Cholesterol 162 mg/dL (<200); Estimated Glomerular Filt Rate > 60; Glucose Random 102 mg/dL (60-115); HDL Cholesterol 53 mg/dL (>40); LDL Cholesterol Calculated 90 mg/dL (<100); Sodium 142 mmol/L (135-145); Total Protein 6.8 g/dL (6.5-8.0); Triglycerides 95 mg/dL (<150)
[2024-09-23 09:38] LABS: Thyroid Stimulating Hormone 1.97 uIU/mL (0.32-4.0)
[2024-09-23 10:13] LABS: T4 Thyroxine 6.4 ug/dL (4.5-12.0)
== END 2024-09-23 08:00 | disposition home or self-care (01) ==
LOC: HO.LAB 07:59
PROVIDERS: PCP Internal Medicine; Visit Provider Internal Medicine
DX: M25.50 Pain in unspecified joint (principal); Z13.6 Encounter for screening for cardiovascular disorders
CPT/HCPCS: 36415; 80048; 80061; 80076; 81001; 84436; 84443; 85027

== ENCOUNTER 2024-10-08 12:17 | Day surgery (SDC) | payer OTHER, SELFPAY ==
--- OUTSIDE RECORDS SUMMARY | 2024-10-01 15:25 | XMS_ITS | Patient Health Record ---
Author Organization [facility] Address [address] [address] Care Team Providers Care Horse Racing Analyst Name Role Phone Trinity Hurtado Unavailable [phone] Reason For Referral No Information Medications Medication SIG (Take, Route, Frequency, Duration) Notes Start Date End Date Status Crestor Active Plan Of Treatment No Information Insurance Providers Payer Name Payer Address Payer Phone Subscriber Number Group Number Insured Name Patient Relationship to Insured Coverage Start Date Coverage End Date [place] [employer] PPO [address] [place] [id number] CHASE RSOADO Self - patient is the insured 2
[2024-10-06 14:28] VITALS: BMI 23.2
--- NOTE | 2024-10-08 02:10 | HP_ITS ---
DATE OF SERVICE: 10/08/2024 DATE OF SURGERY: 10/08/2024. 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 She previously was evaluated because of diarrhea and epigastric pain in July 2020, she had additional pancreatic inflammation due to a common bile duct stone and had post ERCP pancreatitis after her ERCP. Previous imaging has documented pancreas divisum. Endoscopy in 2020 showed benign gastric polyps and colon polyps. Pathology was remarkable for no evidence of H pylori or Doty's esophagus, stomach polyps were fundic gland polyps and colonoscopy showed multiple tubular adenomas for 5-year followup was recommended. We reviewed this today. PAST MEDICAL HISTORY: 1. Colonoscopy and endoscopy as above. 2. Pancreas divisum with history of gallstones. 3. Lung nodule. 4. Hyperlipidemia. 5. Spondylolisthesis. CURRENT MEDICATIONS: Her current medication list is reviewed in the chart. ALLERGIES: OXYCODONE. FAMILY HISTORY: This is reviewed and is noncontributory. SOCIAL HISTORY: There is no current tobacco, alcohol, or substance abuse. 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 REVIEW OF SYSTEMS: SKIN: No pruritus. HEENT: Negative. CARDIOPULMONARY: No shortness of breath or chest pain GASTROINTESTINAL: As above. GENITOURINARY: Negative. NEUROPSYCHIATRIC: Negative. PHYSICAL EXAMINATION: GENERAL: Shows a pleasant female, in no acute distress. LUNGS: Clear. HEART: Shows regular rate and rhythm. S1, S2. No murmur. ABDOMEN: Soft without focal masses or tenderness. Bowel sounds are present. No organomegaly is noted. EXTREMITIES: Without edema. IMPRESSION: Epigastric pain, personal history of colon polyps. PLAN: Upper endoscopy and colonoscopy. Risks and benefits of the procedure have been discussed with the patient who understands and agrees to proceed. This will be scheduled at her convenience. MD SARA Urbano/CORNELL / [id number] MTDJess
[2024-10-08 12:40] VITALS: BP 115/64; PULSE 88; RESP 16; TEMP 36.9; O2SAT 97; BMI 21.2
[2024-10-08] MEDS: Lactated Ringers 1,000 ML 100 ML IVCONT (12:50)
--- NOTE | 2024-10-08 13:10 | HO.ANESPROP2 ---
Documented by User: Donna Leblanc NP 10/07/24 10:14 HPI - Anesthesia Eval Consult details Narrative: 69yo F for Upper Endoscopy and Colonoscopy PMF Active Problems Active Problems: All Active Problems Ptosis due to aging (Acute) Lung nodule (Acute) Sacroiliac joint dysfunction (Acute) Encounter for well woman exam with routine gynecological exam (Acute) Spondylolisthesis, lumbar region (Acute) Anterolisthesis of cervical spine (Acute) Cough (Acute) Chest tightness (Acute) PVCs (premature ventricular contractions) (Acute) Polyarthralgia (Acute) Back pain (Acute) Annual physical exam (Acute) Neck pain (Acute) Past Medical History Medical History Ptosis due to aging Lung nodule Spondylolisthesis, lumbar region Elevated cholesterol Family History Family History Mother No problems noted. Father No problems noted. Family history of problems with anesthesia: No Surgical History Surgical History H/O breast surgery History of ERCP History of appendectomy History of colonoscopy (~08/11/20) History of bunionectomy Hx of unilateral oophorectomy Hx of cholecystectomy S/P epidural steroid injection History of Problems with Anesthesia: No Social History Social History Housing: Apartment Are you a primary insurance healthcare consultant to a significant other at home: No Do you presently have visiting nurse or other home services: No Alcohol intake: never Patient Tobacco Use Status: Former Tobacco user Tobacco use type: Cigarette Smoked in Last 30 Days: No e-Cigarette/Vaping Use: Never Used Second Hand Smoke Exposure: Yes Use of substances other than those prescribed or required for medical reasons: No Have you been hit, kicked, punched, or otherwise hurt by someone within the past year? If so, by whom?: No Are you DNR?: No Advance Directives: No Advance Directives Information Provided: No Advance Directives on File: No Patient : No : No Poor oral hygiene: No service: No Current occupational status: employed Current occupation: anesthesia doctor Current occupational exposures/hazards: No Cognitive needs: No Hearing needs: No Vision needs: Yes (Glasses) Meds Allergies Allergy/AdvReac Type Severity Reaction Status Date / Time tramadol Allergy Intermediate AMS, Verified 10/08/24 12:37 Loopy oxycodone Allergy Mild Nausea Verified 10/08/24 12:37 Home Medications ?Medication ?Instructions ?Recorded ?Confirmed ?Last Taken ?Type celecoxib 200 mg capsule (Celebrex) 200 mg PO DAILY PRN pat 08/03/21 10/08/24 10/06/24 History gabapentin 100 mg tablet 200 mg PO DAILY 08/22/23 10/08/24 Unknown History rosuvastatin 10 mg tablet 10 mg PO DAILY 07/29/24 10/08/24 Unknown History Exam Height,Weight and Vital Signs: Height 5 ft 7 in Weight 67.132 kg Assessment and Plan Assessment Anesthesia Assessment: Chart Reviewed Final Anesthetic Review Family History of Problems with Anesthesia: No History of Problems with Anesthesia: No Documented by User: Micheline Trevino, 10/08/24 13:12 [facility] Past Medical History Medical History Ptosis due to aging Lung nodule Spondylolisthesis, lumbar region Elevated cholesterol Family History Family History Mother No problems noted. Father No problems noted. Family history of problems with anesthesia: No Surgical History Surgical History H/O breast surgery History of ERCP History of appendectomy History of colonoscopy (~08/11/20) History of bunionectomy Hx of unilateral oophorectomy Hx of cholecystectomy S/P epidural steroid injection History of Problems with Anesthesia: No Social History Social History Housing: Apartment Are you a primary insurance healthcare consultant to a significant other at home: No Do you presently have visiting nurse or other home services: No Alcohol intake: never Patient Tobacco Use Status: Former Tobacco user Tobacco use type: Cigarette Smoked in Last 30 Days: No e-Cigarette/Vaping Use: Never Used Second Hand Smoke Exposure: Yes Use of substances other than those prescribed or required for medical reasons: No Have you been hit, kicked, punched, or otherwise hurt by someone within the past year? If so, by whom?: No Are you DNR?: No Advance Directives: No Advance Directives Information Provided: No Advance Directives on File: No Patient : No : No Poor oral hygiene: No service: No Current occupational status: employed Current occupation: anesthesia doctor Current occupational exposures/hazards: No Cognitive needs: No Hearing needs: No Vision needs: Yes (Glasses) Meds Allergies Allergy/AdvReac Type Severity Reaction Status Date / Time tramadol Allergy Intermediate AMS, Verified 10/08/24 12:37 Loopy oxycodone Allergy Mild Nausea Verified 10/08/24 12:37 Home Medications ?Medication ?Instructions ?Recorded ?Confirmed ?Last Taken ?Type celecoxib 200 mg capsule (Celebrex) 200 mg PO DAILY PRN pat 08/03/21 10/08/24 10/06/24 History gabapentin 100 mg tablet 200 mg PO DAILY 08/22/23 10/08/24 Unknown History rosuvastatin 10 mg tablet 10 mg PO DAILY 07/29/24 10/08/24 Unknown History Exam Exam Date and Time: 10/08/24 1310 Height,Weight and Vital Signs: Height 5 ft 7 in Weight 67.132 kg Vital Signs Temperature 98.5 F 10/08/24 12:40 Pulse Rate 88 10/08/24 12:40 Respiratory Rate 16 10/08/24 12:40 Blood Pressure 115/64 10/08/24 12:40 Pulse Oximetry 97 10/08/24 12:40 Oxygen Delivery Method Room Air 10/08/24 12:40 Temperature 98.5 F 10/08/24 12:40 Pulse Rate 88 10/08/24 12:40 Respiratory Rate 16 10/08/24 12:40 Blood Pressure 115/64 10/08/24 12:40 Pulse Oximetry 97 10/08/24 12:40 Oxygen Delivery Method Room Air 10/08/24 12:40 Airway Mallampati Class: I TM Dist: >3cm Neck ROM: Full Loose/Missing/Broken Teeth: No Heart: S1S2 Lungs: CTAB Assessment and Plan Assessment Anesthesia Assessment: Anesthesia Plan Discussed and Chart Reviewed Final Anesthetic Review Family History of Problems with Anesthesia: No History of Problems with Anesthesia: No NPO: Yes ASA Class: II Final Preanesthetic Review: No Changes in Pt Med Stat, Meds/Allgs Chart Reviewed, Consent Obtained/Reviewed and Anes Risks/Benef Reviewed Patient Risk: Low Procedure Risk: Low Anesthetic Plan Anesthetic Plan: MAC: and Agree w/ Assess. and Plan Disposition: Standard PACU
--- NOTE | 2024-10-08 13:14 | MHC.SHP ---
Pre-Procedural Eval Section A - 24 Hr Update-Section A only Date of Service: 10/08/24 The patient is an INPATIENT: No Changes since office visit: No Cold of Flu in the past 2 weeks, No New Medical Problems, No Changes in Medication and No Patient answered all questions The patient has been examined within 24 hours of the surgical procedure. The History & Physical has been completed within 30 days and I have reviewed it.: Yes Section B - Complete if H&P > 30 days Chief Complaint: Encounter for screening for malignant neoplasm of Allergies: Allergies Allergy/AdvReac Type Severity Reaction Status Date / Time tramadol Allergy Intermediate AMS, Verified 10/08/24 12:37 Loopy oxycodone Allergy Mild Nausea Verified 10/08/24 12:37 Plan I have reviewed the history and physical and performed a pertinent physical examination on my patient. No changes have occurred unless specified. Time Spent With Patient Time: Total time managing care of this patient today ____ minutes.
[2024-10-08 14:42] VITALS: BP 109/68; PULSE 72; RESP 18; TEMP 36.2; O2SAT 97
[2024-10-08 14:57] VITALS: BP 116/74; PULSE 64; RESP 18; O2SAT 97
[2024-10-08 15:12] VITALS: BP 138/56; PULSE 67; RESP 18; TEMP 36.6; O2SAT 97
[2024-10-08] MEDS: Celecoxib 200 MG CAPSULE PO (15:22)
--- NOTE | 2024-10-08 22:38 | OP_ITS ---
DATE OF SERVICE: 10/08/2024 SURGEON: Mani Morales MD INDICATIONS: Epigastric pain and prior history of colon polyps. PREOPERATIVE DIAGNOSIS: POSTOPERATIVE DIAGNOSIS: PROCEDURE PERFORMED: Upper endoscopy with biopsy, colonoscopy to the terminal ileum. ESTIMATED BLOOD LOSS: COMPLICATIONS: ANESTHESIA: Monitored anesthesia care. ASSISTANTS: SPECIMENS: DESCRIPTION OF PROCEDURE: A history and physical were performed. The risks and benefits of the procedure were explained to the patient. Informed consent was obtained. The patient was placed in the left lateral decubitus position. The Olympus video gastroscope was introduced into the esophagus, stomach, and duodenum. Examination was performed. The scope was removed. She was repositioned for colonoscopy. Digital rectal exam was performed and was found to be normal. The Olympus pediatric video colonoscope was introduced into the rectum and advanced to the cecum. The cecum was identified by transillumination, palpation, and identification of ileocecal valve. Examination was performed. The scope was removed. She tolerated both procedures well and was returned to recovery area in stable condition. FINDINGS: Upper endoscopy: 1. Esophagus: The esophagus was normal. There was an irregular EG junction, which was biopsied. There was no esophagitis. 2. Stomach: The stomach showed a single polyp measuring less than 5 mm. This was biopsied. This had the appearance of a fundic gland polyp. This was in the body of the stomach on the greater curvature. Antral biopsies were obtained to rule out Helicobacter pylori. 3. Duodenum: The bulb and 2nd portion were normal. Biopsies were obtained from the 2nd portion. Colonoscopy: The terminal ileum was examined and appeared normal. The visualized colonic mucosa was normal. The quality of the prep was good. No polyps were identified. Retroflexed examination showed some small internal hemorrhoids. IMPRESSION: 1. Gastric polyp. 2. Normal colonoscopy. RECOMMENDATION: 1. Follow up as needed. 2. Repeat colonoscopy is recommended in 10 years for average-risk individuals. MD SARA Urbano/CORNELL / [id number]
== END 2024-10-08 15:40 | disposition home or self-care (01) ==
PROVIDERS: PCP Internal Medicine; Visit Provider Internal Medicine Gastroenterology
PROC: (CPT 43239; principal; 2024-10-08 13:50)
DX: Z12.11 Encounter for screening for malignant neoplasm of colon (principal); K64.8 Other hemorrhoids; Z86.0101 Personal history of adenomatous and serrated colon polyps; K22.89 Other specified disease of esophagus; K31.7 Polyp of stomach and duodenum; R10.13 Epigastric pain; E78.5 Hyperlipidemia, unspecified; R91.1 Solitary pulmonary nodule
CPT/HCPCS: 43239; G0121; 88305; 88313; 88342; J2003; J2704

== ENCOUNTER 2024-11-10 15:30 | Outpatient (REF) | payer OTHER, SELFPAY ==
--- OUTSIDE RECORDS SUMMARY | 2024-10-08 09:50 | XMS_ITS ---
Author Organization [facility] Address [address] [place] [address] Care Team Providers Care Manager Hris Name Role Phone SAHARA WAGNER Primary Care Provider Mani Sorensen Jr REASON FOR VISIT colon screening, egd Encounters Encounter Location Date Provider Diagnosis [facility] Out[facility] [address], [place] [id number] 10/08/2024 Mani Morales Jr Colon cancer screening Z12.11 ; Personal history of adenomatous and serrated colon polyps Z86.0101 and Epigastric pain R10.13 Assessments Encounter Date Diagnosis (ICD Code) Assessment Notes Treatment Notes Treatment Clinical Notes Section Notes 10/08/2024 Colon cancer screening (ICD-10 - Z12.11) 10/08/2024 Personal history of adenomatous and serrated colon polyps (ICD-10 - Z86.0101) 10/08/2024 Epigastric pain (ICD-10 - R10.13) Plan Of Treatment No Information Progress Notes * ISABEL DUNBARADOB: [birth year] (69 yo F)Acc No.[id number]:10/08/2024 EGD and COL/MAC Patient: Trupti CHASE FLORES Provider: Chrissie Morales MD :1955 A ge:69 Y S ex:Female Date:10/08/2024 Address:[address], [address], [place], [place] Pcp:SAHARA WAGNER Subjective: * Chief Complaints: * 1 . Colon screening, egd. * Medical History: Objective: * Vitals: Assessment: * Assessment: 1. C olon cancer screening - Z12.11 (Primary) 2 . P ersonal history of adenomatous and serrated colon polyps - Z86.0101 3 . E pigastric pain - R10.13 ? Plan: * Treatment: * Procedure Codes: 4 5378 DIAGNOSTIC COLONOSCOPY, 0529F INTRVL 3+YRS PTS CLNSCP DOCD, 0528F RCMND FLW-UP 10 YRS DOCD, 11774 UPPER GI ENDOSCOPY, BIOPSY * * The named appointment provid er may or may not be the originator of this progress note, and it is not deemed complete until electronically signed by the appointment provider. Sign off status: Pending * Provider: Chrissie Morales MD Date: 0 10/08/2024 Generated for Juliane mario/Tiffanie/Silviaitting on: 0 11/10/2024 04:01 PM EDT
--- OUTSIDE RECORDS SUMMARY | 2024-11-10 16:01 | XMS_ITS | Patient Health Record ---
Author [facility] Address [address] [place] [address] Care Team Providers Care Spray Foam Installer Name Role Phone Lilli, Kartik Primary Care Provider Ra Pyle [phone] Allergies Allergen (clinical drug ingredient) Drug/Non Drug Allergy documented on EMR Reaction Allergy Type Onset Date Status tramadol Tramadol Unknown Drug Allergy Active Reason For Referral No Information Medications Medication SIG (Take, Route, Fr equency, Duration) Notes Start Date End Date Status Crestor 5 MG 1 tablet Orally Once a day; Duration: 30 day(s) Active Gabapentin 300 MG 1 capsule Orally Onc e a day; Duration: 30 day(s) Active Immunizations Vaccine Route Administration [...] Coverage End Date Blue Benefits [address] [address] [place] [address] [id number] Agata Rivas Self - patient is the insured Medical (General) History Medical History History ICD Code Back,Hip,and Knee pain Chicken pox Measles Mumps Surgical History Surgery Date(Month/Year) cholecystectomy 1999 appendectomy 1982 ovarian cyst resection 1982 bunionectomy
--- OUTSIDE RECORDS SUMMARY | 2024-11-10 16:01 | XMS_ITS | Patient Health Record ---
Author Organization [facility] Address [address] [address] Care Team Providers Care Auto Accessories Installer Name Role Phone Trinity Hurtado Unavailable [phone] Reason For Referral No Information Medications Medication SIG (Take, Route, Frequency, Duration) Notes Start Date End Date Status Crestor Active Plan Of Treatment No Information Insurance Providers Payer Name Payer Address Payer Phone Subscriber Number Group Number Insured Name Patient Relationship to Insured Coverage Start Date Coverage End Date [place] [employer] PPO [address] [place] [id number] [phone] [id number] CHASE ROSADO Self - patient is the insured 2
== END 2024-11-10 15:31 | disposition home or self-care (01) ==
LOC: HO.MAMMO 15:30
PROVIDERS: PCP Internal Medicine; Visit Provider Advanced Practice Midwife
DX: Z12.31 Encounter for screening mammogram for malignant neoplasm of breast (principal)
CPT/HCPCS: 77063; 77067

== ENCOUNTER → 2024-11-10 15:30 | Outpatient (BNV) | payer OTHER, SELFPAY | PROVIDERS: PCP Internal Medicine; Visit Provider Internal Medicine | DX: Z12.31 Encounter for screening mammogram for malignant neoplasm of breast (principal) | CPT/HCPCS: 77063; 77067 ==